=== PATIENT | female | born 1980 | race Caucasian/White ===

== ENCOUNTER 2024-06-13 16:29 | Emergency (ER) | payer OTHER, SELFPAY ==
[2024-06-13 16:37] VITALS: BP 128/78; PULSE 78; TEMP 36.8; O2SAT 99; BMI 24.6
[2024-06-13 17:16] LABS: Basophils Percent Auto 0.5 % (0.2-2.0); Eosinophils Absolute Auto 0.1 10^3/uL (0.0-0.7); Eosinophils Percent Auto 1.1 % (0.9-7.0); Hematocrit 41.3 % (36.0-48.0); Hemoglobin 14.1 g/dL (12.0-16.0); Immature Granulocytes Abs Auto 0.02 10^3/uL (0.00-0.03); Immature Granulocytes Pct Auto 0.2 % (0.0-0.5); Lymphocytes Absolute Auto 2.8 10^3/uL (1.2-3.8); Lymphocytes Percent Auto 33.2 % (20.5-60.0); Mean Corpuscular HGB Conc 34.1 g/dL (29.9-35.2); Mean Corpuscular Hemoglobin 33.2 pg (26.7-34.0); Mean Corpuscular Volume 97.2 fL (81.0-99.0); Mean Platelet Volume 8.7 fL (9.5-13.5); Monocytes Absolute Auto 0.6 10^3/uL (0.3-0.8); Monocytes Percent Auto 7.1 % (1.7-12.0); Neutrophils Absolute Auto 4.9 10^3/uL (1.4-6.5); Neutrophils Percent Auto 57.9 % (43.0-75.0); Platelet Count 326 10^3/uL (150-450); Red Blood Count 4.25 10^6/uL (4.20-5.40); Red Cell Distribution Width 12.7 % (11.0-15.0); White Blood Count 8.5 10^3/uL (4.0-11.0)
--- NOTE | 2024-06-13 17:35 | ECG_ITS ---
The [facility] Test Date: 2024-06-13 Pat Name: GARIMA CORNEJO Department: Room: - Gender: Female Broacher: : 1980 Requested By: [id number] Order Number: [id number] Reading MD: HEBER ANDRADE Measurements Intervals [place] Rate: 78 P: 49 CO: 148 QRS: 62 QRSD: 74 T: 32 QT: 362 QTc: 396 Interpretive Statements 1100 Sinus rhythm 1570 with occasional ventricular premature complexes 4068 Nonspecific Tw[place] abnormality 9140 abnormal rhythm ECG No previous ECG available for comparison Electronically Signed On 06-14-2024 5:25:56 EDT by HEBER ANDRADE
[2024-06-13 17:36] LABS: Alanine Aminotransferase 33 U/L (14-59); Albumin Level 3.5 g/dL (3.4-5.0); Alkaline Phosphatase 67 U/L (46-116); Anion Gap 9.6; Aspartate Amino Transferase 18 U/L (15-37); BUN Creatinine Ratio 14.7; Bilirubin Total 0.3 mg/dL (0.2-1.0); Calcium 8.8 mg/dL (8.5-10.1); Carbon Dioxide 28.2 mmol/L (21.0-32.0); Chloride 105 mmol/L (98-107); Estimated GFR (African America >60 (>=60); Estimated GFR (Non-African Ame >60 (>=60); Globulin 3.5 g/dL; Glucose 114 mg/dL (74-106); Potassium 3.8 mmol/L (3.5-5.1); Sodium 139 mmol/L (136-145); Troponin I High Sensitivity <4.0 pg/mL (4.0-51.3)
--- NOTE | 2024-06-13 18:28 | ED.CHESTPAI1 ---
HPI - Chest Pain General Chief Complaint: Back Pain/Injury Stated Complaint: CARDIAC Time Seen by Provider: 06/13/24 18:19 Source: patient and friend (Significant other) Mode of arrival: walk-in Limitations: no limitations History of Present Illness HPI narrative: 44-year-old female presents to the emergency department significant other with complaint of back, neck, chest pain. Onset after she was walking her dogs last night. Initially, pain was in the lower back, now located to bilateral upper back regions. States neck pain is the left anterior, describes as a bruise with associated tenderness. Had fleeting chest discomfort. History of hypertension, hyperlipidemia, cigarette smoking. Denies any recent travel, calf pain, control pill use, cancer history, prior history of blood clots. Denies any shortness of breath, nausea, diaphoresis. Quality:?Soreness, bruised Severity:?Mild Timing:?Since last night, improving Context: Normal setting and activity? Modifying factors:?Pain worse with palpation Associated symptoms: As Related Data Home Medications ?Medication ?Instructions ?Recorded ?Confirmed amlodipine 5 mg tablet 5 mg PO DAILY 06/13/24 06/13/24 rosuvastatin 10 mg sprinkle capsule 10 mg PO DAILY 06/13/24 06/13/24 Previous Rx's ?Medication ?Instructions ?Recorded cyclobenzaprine 5 mg tablet 5 - 10 mg (1 - 2 x 5 mg) PO TID 06/13/24 PRN muscle pain #14 tabs Allergies Allergy/AdvReac Type Severity Reaction Status Date / Time meperidine [From Demerol] AdvReac Mild Hives Verified 06/13/24 16:41 Review of Systems ROS Constitutional Denies: fever, chills or fatigue Ears, nose, mouth, and throat Reports: neck pain Cardiovascular Reports: chest pain; Denies: palpitations, edema or shortness of breath with exertion Respiratory Denies: shortness of breath, cough or chest congestion Gastrointestinal Denies: abdominal pain or nausea Musculoskeletal Reports: back pain; Denies: neck pain or extremity pain Neurological Denies: headache, dizziness or confusion Endocrine Denies: fatigue PFSH PFSH Family History (Updated 06/13/24 @ 18:34 by CARLOS Ma) Other Family history of cancer Family history of hypertension Social History (Updated 06/13/24 @ 18:34 by CARLOS Ma) Smoking status: Current every day smoker Exam Constitutional Vital Signs, click to edit/add: Last Vital Signs Temp 98.2 F 06/13/24 16:37 Pulse 86 06/13/24 18:43 Resp 18 06/13/24 18:43 BP 136/88 06/13/24 18:43 Pulse Ox 98 06/13/24 18:43 O2 Del Method Room Air 06/13/24 16:37 Common normals: apparent distress, negative for oriented x3 and negative for well nourished HENMT Common normals: normocephalic, head/scalp atraumatic and external nose normal Nose: external nose normal Eye Common normals: conjunctivae normal Neck & C-Spine Common normals: supple and no JVD Chest Common normals: palpation of chest normal Respiratory Common normals: normal respiratory effort and clear to auscultation bilaterally Effort & inspection: able to speak in complete sentences Cardio Common normals: no JVD, regular rate, regular rhythm and no murmurs GI Common normals: soft to palpation and non-tender Back & Pelvis Common normals: CVA tenderness General back: tenderness (Right trapezius) Thoracic spine/upper back: normal to inspection; no thoracic spinal tenderness Lumbar spine/lower back: normal to inspection; no lumbar spinal tenderness and no paraspinal muscle tenderness Extremity Common normals: no pedal edema Neuro Common normals: no focal motor deficits, no sensory deficits noted and gait normal; not oriented x3 Psych Common normals: mental status grossly normal, thought process normal and cooperative Thought process: normal thought process Course Vital Signs Vital signs: Vital Signs Temperature 98.2 F 06/13/24 16:37 Pulse Rate 78 06/13/24 16:37 Respiratory Rate 18 06/13/24 16:37 Blood Pressure 128/78 06/13/24 16:37 Pulse Oximetry 99 06/13/24 16:37 Oxygen Delivery Method Room Air 06/13/24 16:37 Temperature 98.2 F 06/13/24 16:37 Pulse Rate 86 06/13/24 18:43 Respiratory Rate 18 06/13/24 18:43 Blood Pressure 136/88 06/13/24 18:43 Pulse Oximetry 98 06/13/24 18:43 Oxygen Delivery Method Room Air 06/13/24 16:37 MDM - Chest Pain MDM Narrative Medical decision making narrative: This is a pleasant 44-year-old female who presents to the emergency department with complaint of back, neck, chest discomfort. Onset after walking her dogs last night. On arrival afebrile, vital signs are stable. Not hypoxic. Not tachycardic. On exam nontoxic, well-appearing patient in no distress. Heart regular rate and rhythm. Lung sounds clear and equal bilaterally. No edema. She has point tenderness to the right trapezius muscle. She is also states there is tenderness to the left neck, lower jaw region. EKG reveals no acute or concerning changes Labs reveal no leukocytosis, anemia, thrombocytopenia, electrolyte imbalance, renal impairment. LFTs unremarkable. High-sensitivity troponin was negative. Favor upper back pain, favor muscle soreness. ACS less likely based on biomarkers and EKG Consider muscle aches from statin use. Patient advised to take co-Q10. No elevation of LFTs noted. PE less likely based on negative PERC score Disposition ? The patient was discharged. Plan: Patient will be discharged to home. Condition at time of disposition: stable ? Advised to follow up with primary provider. Advised to return for any worsening and/or development of new, concerning signs or symptoms PLEASE NOTE: Portions of the medical record may have been produced using electronic medical staff assistant and may contain errors with respect to translation of words which may not have been identified prior to finalization of the chart. Medical Records Data Attestation: I reviewed the patient's medical records. Lab Data Attestation: I reviewed the patient's lab results. Labs: Lab Results 06/13/24 Range/Units 17:03 WBC 8.5 (4.0-11.0) 10^3/uL RBC 4.25 (4.20-5.40) 10^6/uL Hgb 14.1 (12.0-16.0) g/dL Hct 41.3 (36.0-48.0) % MCV 97.2 (81.0-99.0) fL MCH 33.2 (26.7-34.0) pg MCHC 34.1 (29.9-35.2) g/dL RDW 12.7 (11.0-15.0) % Plt Count 326 (150-450) 10^3/uL MPV 8.7 L (9.5-13.5) fL Neut % (Auto) 57.9 (43.0-75.0) % Lymph % (Auto) 33.2 (20.5-60.0) % [place] % (Auto) 7.1 (1.7-12.0) % Eos % (Auto) 1.1 (0.9-7.0) % Baso % (Auto) 0.5 (0.2-2.0) % Neut # (Auto) 4.9 (1.4-6.5) 10^3/uL Lymph # (Auto) 2.8 (1.2-3.8) 10^3/uL [place] # (Auto) 0.6 (0.3-0.8) 10^3/uL Eos # (Auto) 0.1 (0.0-0.7) 10^3/uL Baso # (Auto) 0.0 (0.0-0.1) 10^3/uL Abs Immat Gran (auto) 0.02 (0.00-0.03) 10^3/uL Imm/Tot Granulo (auto) 0.2 (0.0-0.5) % Sodium 139 (136-145) mmol/L Potassium 3.8 (3.5-5.1) mmol/L Chloride 105 (98-107) mmol/L Carbon Dioxide 28.2 (21.0-32.0) mmol/L Anion Gap 9.6 BUN 14.0 (7.0-18.0) mg/dL Creatinine 0.95 (0.55-1.02) mg/dL Est GFR ( Amer) >60 (>=60) Est GFR (Non-Af Amer) >60 (>=60) BUN/Creatinine Ratio 14.7 Glucose 114 H (74-106) mg/dL Calcium 8.8 (8.5-10.1) mg/dL Total Bilirubin 0.3 (0.2-1.0) mg/dL AST 18 (15-37) U/L ALT 33 (14-59) U/L Alkaline Phosphatase 67 (46-116) U/L Troponin I High Sens <4.0 L (4.0-51.3) pg/mL Total Protein 7.0 (6.4-8.2) g/dL Albumin 3.5 (3.4-5.0) g/dL Globulin 3.5 g/dL Albumin/Globulin Ratio 1.0 ECG Data Attestation: I personally reviewed and interpreted this ECG as follows: (Sinus rhythm at [address] elevation. No other acute or concerning changes. Normal axis.) ECG interpretation date: 06/13/24 ECG interpretation time: 16:37 Heart Score History: Slightly/Non-Suspicious ECG: Normal Age: >45-<65 years Risk Factors: >3 Risk Factors/ HX of CAD:2 Troponin: <Normal Limit Total Heart Score Recommendations & Risks:: 3 Discharge Plan Discharge Stand Alone Forms: Portal Instructions Chief Complaint: Back Pain/Injury Clinical Impression: Upper back pain, Chest pain Patient Disposition: Home, Self-Care Time of Disposition Decision: 18:37 Condition: Good Mode of Transportation: Private Vehicle Prescriptions / Home Meds: New cyclobenzaprine 5 mg tablet 5 - 10 mg PO TID PRN (Reason: muscle pain) Qty: 14 0RF No Action rosuvastatin 10 mg capsule, sprinkle 10 mg PO DAILY amlodipine 5 mg tablet 5 mg PO DAILY Print Language: Greek Instructions: Chest Pain (ED), Back Pain (ED) Additional Instructions: Obtain CoQ10 from the store and use as directed Referrals: [facility] [Primary Care Provider] - 1 week Discharge Date/Time: 06/13/24 18:44
[2024-06-13 18:43] VITALS: BP 136/88; PULSE 86; O2SAT 98
== END 2024-06-13 18:44 | disposition home or self-care (01) ==
PROVIDERS: Emergency Provider Emergency Medicine
DX: R07.9 Chest pain, unspecified (principal); M54.6 Pain in thoracic spine; I10 Essential (primary) hypertension; E78.5 Hyperlipidemia, unspecified; F17.210 Nicotine dependence, cigarettes, uncomplicated
CPT/HCPCS: 36415; 80053; 84484; 85025; 93005; 99284

== ENCOUNTER 2024-08-10 19:10 | Emergency (ER) | payer OTHER, SELFPAY ==
[2024-08-10] VITALS (12 sets, daily range): BP systolic 118–150; BP diastolic 77–92; PULSE 63–86; TEMP 36.5; O2SAT 95–100; BMI 25.0
--- NOTE | 2024-08-10 19:25 | CT_ITS ---
The [address] [address] Patient Name: GARIMA CORNEJO MRN: [id number] date: 1980 Sex: F Assigned Patient Location: ER Current Patient Location: ER Accession/Order Number: [id number] Exam Date: 08/10/2024 19:34 Report Date: 08/10/2024 19:52 At the request of: BOBBY KYLE Procedure: CT stroke head/brain wo con EXAM: CT stroke head/brain wo con HISTORY: Right-sided numbness and confusion. TECHNIQUE: Axial CT scans through the head were obtained without IV contrast administration. Dose reduction techniques were achieved by using: automated exposure control and/or adjustment of mA and /or kV according to patient size and/or the use of an iterative reconstruction technique. COMPARISON: None. FINDINGS: The cerebral hemispheres have normal white and galarza matter and corticomedullary differentiation. To the limit of CT, the posterior fossa appears unremarkable. The ventricular system and cortical sulci are normal for the patient's age. No area of abnormal mass-effect or edema or intracranial hemorrhage. The visualized orbits show no abnormal mass. The visualized paranasal sinuses show no air-fluid level. Mastoid air cells are clear. CT/CT stroke head/brain wo con IMPRESSION: No acute intracranial process. Electronically authenticated by: AMINA SAVAGE Date: 08/10/2024 19:52
--- NOTE | 2024-08-10 19:25 | XR_ITS ---
[address] [address] Patient Name: GARIMA CORNEJO MRN: [id number] date: 1980 Sex: F Assigned Patient Location: ER Current Patient Location: ER Accession/Order Number: [id number] Exam Date: 08/10/2024 19:36 Report Date: 08/10/2024 20:27 At the request of: BOBBY KYLE Procedure: XR chest 1V Exam: Radiographs: XR chest 1V Reason for exam: poss cva Comparison: None XR/XR chest 1V IMPRESSION: Unremarkable chest x-ray. Electronically authenticated by: AYSHA ADAN Date: 08/10/2024 20:27
--- NOTE | 2024-08-10 19:25 | ECG_ITS ---
The [facility] Test Date: 2024-08-10 Pat Name: GARIMA CORNEJO Department: Room: - Gender: Female Center Mgr: : 1980 Requested By: [id number] Order Number: [id number] Reading MD: KRISTIN MENDEZ Measurements Intervals [place] Rate: 79 P: 52 TX: 150 QRS: 66 QRSD: 74 T: 42 QT: 354 QTc: 388 Interpretive Statements 1100 Sinus rhythm 9110 normal ECG Compared to ECG 06/13/2024 16:37:12 Ventricular premature complex(es) no longer present Electronically Signed On 08-12-2024 7:30:39 EDT by KRISTIN MENDEZ
--- NOTE | 2024-08-10 19:29 | ED.NEUROSD1 ---
HPI - Neuro Symptoms/Deficit General Chief Complaint: Neuro Symptoms/Deficit Stated Complaint: Right Side Numbness, Dizziness, Confusion Time Seen by Provider: 08/10/24 19:13 Source: patient Mode of arrival: walk-in Limitations: no limitations History of Present Illness HPI Narrative: 44-year-old female presents to the emergency department for weakness in her right arm and right leg. She has had a generalized headache for 4 days and then her symptoms began yesterday when she noticed she had trouble controlling her right arm and she ended up cutting in a minor fashion a finger of her left hand in the kitchen. Between 8 and 9 this morning she was driving in her car and her body felt heavy. She was tired and she went home and she slept until about 2:00 pm. Her has noticed that she has had some trouble walking particularly when she was coming down some stairs. She has noticed trouble controlling her right arm and her right leg such as signing papers. Symptoms have been continuous and she is never had a stroke previously. She has a history of hypertension and has been taking her medication. Related Data Home Medications ?Medication ?Instructions ?Recorded ?Confirmed amlodipine 10 mg-benazepril 20 mg 1 cap PO DAILY 08/10/24 08/10/24 capsule rosuvastatin 10 mg tablet 10 mg PO DAILY 08/10/24 08/10/24 Allergies Allergy/AdvReac Type Severity Reaction Status Date / Time meperidine [From Demerol] AdvReac Mild Hives Verified 08/10/24 19:15 Review of Systems ROS Narrative A ten point review of systems is negative except as noted above. PFSH PFSH Family History (Updated 06/13/24 @ 18:34 by CARLOS Ma) Other Family history of cancer Family history of hypertension Social History (Updated 06/13/24 @ 18:34 by CARLOS Ma) Smoking status: Current every day smoker Little interest or pleasure in doing things: not at all Feeling down, depressed, or hopeless: not at all Exam Narrative Exam Narrative: Nurses note and vital signs reviewed and patient is not hypoxic. General: The patient appears well and in no apparent distress. Patient is resting comfortably on cart. Skin: Warm, dry, no pallor noted. There is no rash noted. Head: Normocephalic, atraumatic Eye: Normal conjunctiva, no drainage, EOMI. PERRL Ears, Nose, Mouth, and Throat: oral mucosa is moist. Nares patent. Cardiovascular: Regular Rate and Rhythm Respiratory: Patient is in no distress, no accessory muscle use, lungs are clear to auscultation, no wheezing, rales or rhonchi Back: non-tender GI: no tenderness to palpation, no masses appreciated. No rebound, guarding, or rigidity noted. Musculoskeletal: The patient has no evidence of calf tenderness, no pitting edema, symmetrical pulses noted bilaterally Neurological: A&O x4, normal speech. Cranial nerves II through XII are intact. She has decreased motor strength in the right arm, all muscle groups compared to the left arm and in the right leg in all muscle groups compared to the left leg. She also has finger to toes and [id number] slight difficulty in the right arm and right leg. No difficulty with the left arm and left leg. She has some pronator drift of the right arm, not the left. NIH score is 4. Psychiatric: Cooperative Constitutional Vital Signs, click to edit/add: Last Vital Signs Temp 97.7 F 08/10/24 19:15 Pulse 86 08/10/24 20:30 Resp 23 H 08/10/24 20:30 BP 145/92 H 08/10/24 20:30 Pulse Ox 98 08/10/24 20:30 Course Vital Signs Vital signs: Vital Signs Temperature 97.7 F 08/10/24 19:15 Pulse Rate 83 08/10/24 19:15 Respiratory Rate 18 08/10/24 19:15 Blood Pressure 150/90 H 08/10/24 19:15 Pulse Oximetry 100 08/10/24 19:15 Temperature 97.7 F 08/10/24 19:15 Pulse Rate 86 08/10/24 20:30 Respiratory Rate 23 H 08/10/24 20:30 Blood Pressure 145/92 H 08/10/24 20:30 Pulse Oximetry 98 08/10/24 20:30 MDM - Neuro Symptoms/Deficit MDM Narrative Medical decision making narrative: CT brain is negative. I discussed the case with neurologist on-call at [facility] who reviewed her CTA and identifies and nonobstructive blockage in the left ICA. He recommends IV heparin and transferred to [facility] and this is being accomplished. I have spoken to the patient and her about these findings and the need for transfer and they are agreeable. She is stable and agreeable for transfer. Differential Diagnosis Differential diagnosis: Likely transient cerebral ischemia and other (Intracranial mass, intracranial hemorrhage, CVA) Lab Data Attestation: I reviewed the patient's lab results. Labs: Lab Results 08/10/24 08/10/24 08/10/24 Range/Units 19:29 19:30 19:55 WBC 13.9 H (4.0-11.0) 10^3/uL RBC 4.61 (4.20-5.40) 10^6/uL Hgb 15.2 (12.0-16.0) g/dL Hct 45.2 (36.0-48.0) % MCV 98.0 (81.0-99.0) fL MCH 33.0 (26.7-34.0) pg MCHC 33.6 (29.9-35.2) g/dL RDW 12.4 (11.0-15.0) % Plt Count 319 (150-450) 10^3/uL MPV 8.7 L (9.5-13.5) fL Neut % (Auto) 61.7 (43.0-75.0) % Lymph % (Auto) 29.7 (20.5-60.0) % [place] % (Auto) 7.4 (1.7-12.0) % Eos % (Auto) 0.4 L (0.9-7.0) % Baso % (Auto) 0.4 (0.2-2.0) % Neut # (Auto) 8.6 H (1.4-6.5) 10^3/uL Lymph # (Auto) 4.1 H (1.2-3.8) 10^3/uL [place] # (Auto) 1.0 H (0.3-0.8) 10^3/uL Eos # (Auto) 0.1 (0.0-0.7) 10^3/uL Baso # (Auto) 0.1 (0.0-0.1) 10^3/uL Abs Immat Gran (auto) 0.06 H (0.00-0.03) 10^3/uL Imm/Tot Granulo (auto) 0.4 (0.0-0.5) % Sodium 136 (136-145) mmol/L Potassium 4.1 (3.5-5.1) mmol/L Chloride 103 (98-107) mmol/L Carbon Dioxide 27.1 (21.0-32.0) mmol/L Anion Gap 10.0 BUN 26.0 H (7.0-18.0) mg/dL Creatinine 1.66 H (0.55-1.02) mg/dL Est GFR ( Amer) 40 L (>=60) Est GFR (Non-Af Amer) 33 L (>=60) BUN/Creatinine Ratio 15.7 Glucose 101 (74-106) mg/dL Calcium 8.9 (8.5-10.1) mg/dL POC Glucose 96 (74-106) mg/dL Imaging Data CT scan - head: Radiologist's impression: ITS Impressions Brain CT 08/10/24 19:25 IMPRESSION: No acute intracranial process. Electronically authenticated by: AMINA SAVAGE Date: 08/10/2024 19:52 Chest X-Ray 08/10/24 19:25 IMPRESSION: Unremarkable chest x-ray. Electronically authenticated by: AYSHA ADAN Date: 08/10/2024 20:27 ECG Data Attestation: I personally reviewed and interpreted this ECG as follows: (EKG on my interpretation shows normal sinus rhythm with rate of 79 and no acute change.) Critical Care Time Critical Care Time Critical Care Time: Yes Total Critical Care Time: 50 Attestation: Due to the high probability of sudden and clinically significant deterioration in the patient's condition he/she required the highest level of my preparedness to intervene urgently I provided critical care time including documentation time, medication orders and management, reevaluation, vital sign assessment, ordering and reviewing of lab tests, ordering and reviewing of x-ray studies, and admission orders. Aggregate critical care time is 50 minutes including only time during which I was engaged in work directly related to his/her care and did not include time spent treating other patients simultaneously. Discharge Plan Discharge Chief Complaint: Neuro Symptoms/Deficit Clinical Impression: Acute CVA (cerebrovascular accident) Patient Disposition: [facility] Time of Disposition Decision: 20:31 Discharge Location: [facility] Condition: Fair Mode of Transportation: EMS
[2024-08-10 19:30] LABS: Glucometer 96 mg/dL (74-106)
--- NOTE | 2024-08-10 19:34 | PC.NURSE ---
FSBS reading is 96
[2024-08-10 19:38] LABS: Basophils Absolute Auto 0.1 10^3/uL (0.0-0.1); Basophils Percent Auto 0.4 % (0.2-2.0); Eosinophils Absolute Auto 0.1 10^3/uL (0.0-0.7); Eosinophils Percent Auto 0.4 % (0.9-7.0); Hematocrit 45.2 % (36.0-48.0); Hemoglobin 15.2 g/dL (12.0-16.0); Immature Granulocytes Abs Auto 0.06 10^3/uL (0.00-0.03); Immature Granulocytes Pct Auto 0.4 % (0.0-0.5); Lymphocytes Absolute Auto 4.1 10^3/uL (1.2-3.8); Lymphocytes Percent Auto 29.7 % (20.5-60.0); Mean Corpuscular HGB Conc 33.6 g/dL (29.9-35.2); Mean Platelet Volume 8.7 fL (9.5-13.5); Monocytes Percent Auto 7.4 % (1.7-12.0); Neutrophils Absolute Auto 8.6 10^3/uL (1.4-6.5); Neutrophils Percent Auto 61.7 % (43.0-75.0); Platelet Count 319 10^3/uL (150-450); Red Blood Count 4.61 10^6/uL (4.20-5.40); Red Cell Distribution Width 12.4 % (11.0-15.0); White Blood Count 13.9 10^3/uL (4.0-11.0)
--- NOTE | 2024-08-10 19:57 | CT_ITS ---
The [address] [address] Patient Name: GARIMA CORNEJO MRN: [id number] date: 1980 Sex: F Assigned Patient Location: ER Current Patient Location: ER Accession/Order Number: [id number] Exam Date: 08/10/2024 20:10 Report Date: 08/10/2024 21:10 At the request of: BOBBY KYLE Procedure: CT angio head EXAM: CT angiogram of the head and neck using 100 mL of IV iodinated contrast. 3D images were generated on an independent workstation for better evaluation of the vasculature. NASCET criteria were used when evaluating the carotid arteries. Dose reduction technique used: Automated exposure control and/or adjustment of the mA and/or kV according to patient size and/or use of iterative reconstruction technique. REASON FOR EXAM: Right sided weakness COMPARISON: Noncontrast head CT from today FINDINGS: CTA: Filling defect in the left carotid bifurcation and origin of the left cervical internal carotid artery, this is nonocclusive and does not create tangential stenosis. No large vessel occlusion. No significant intracranial arterial stenoses. No arterial dissections. No intracranial aneurysms. Patent dural venous sinuses. Bilateral vertebral arteries are patent without significant stenosis, aneurysm or dissection in the neck. No arterial dissection or aneurysm in the neck. NON-VASCULAR: No mass effect or midline shift. No hydrocephalus. Paraseptal and centrilobular emphysema in both lungs. Remainder unremarkable. CT/CT angio head IMPRESSION: 1. Left carotid bifurcation and proximal cervical internal carotid artery filling defect is favored to represent thrombus although noncalcified mural plaque projecting into the lumen is also a consideration. 2. No acute intracranial arterial abnormalities. These findings were discussed with Dr. Kyle by phone at 9:09PM on 08/10/2024. Electronically authenticated by: AYSHA ADAN Date: 08/10/2024 21:10
--- NOTE | 2024-08-10 19:57 | CT_ITS ---
The [address] [address] Patient Name: GARIMA CORNEJO MRN: [id number] date: 1980 Sex: F Assigned Patient Location: ER Current Patient Location: ER Accession/Order Number: [id number] Exam Date: 08/10/2024 20:10 Report Date: 08/10/2024 21:10 At the request of: BOBBY KYLE Procedure: CT angio neck EXAM: CT angiogram of the head and neck using 100 mL of IV iodinated contrast. 3D images were generated on an independent workstation for better evaluation of the vasculature. NASCET criteria were used when evaluating the carotid arteries. Dose reduction technique used: Automated exposure control and/or adjustment of the mA and/or kV according to patient size and/or use of iterative reconstruction technique. REASON FOR EXAM: Right sided weakness COMPARISON: Noncontrast head CT from today FINDINGS: CTA: Filling defect in the left carotid bifurcation and origin of the left cervical internal carotid artery, this is nonocclusive and does not create tangential stenosis. No large vessel occlusion. No significant intracranial arterial stenoses. No arterial dissections. No intracranial aneurysms. Patent dural venous sinuses. Bilateral vertebral arteries are patent without significant stenosis, aneurysm or dissection in the neck. No arterial dissection or aneurysm in the neck. NON-VASCULAR: No mass effect or midline shift. No hydrocephalus. Paraseptal and centrilobular emphysema in both lungs. Remainder unremarkable. CT/CT angio neck IMPRESSION: 1. Left carotid bifurcation and proximal cervical internal carotid artery filling defect is favored to represent thrombus although noncalcified mural plaque projecting into the lumen is also a consideration. 2. No acute intracranial arterial abnormalities. These findings were discussed with Dr. Kyle by phone at 9:09PM on 08/10/2024. Electronically authenticated by: AYSHA ADAN Date: 08/10/2024 21:10
[2024-08-10 20:14] LABS: BUN Creatinine Ratio 15.7; Calcium 8.9 mg/dL (8.5-10.1); Carbon Dioxide 27.1 mmol/L (21.0-32.0); Chloride 103 mmol/L (98-107); Estimated GFR (African America 40 (>=60); Estimated GFR (Non-African Ame 33 (>=60); Glucose 101 mg/dL (74-106); Potassium 4.1 mmol/L (3.5-5.1); Sodium 136 mmol/L (136-145)
[2024-08-10] MEDS: HEPARIN SODIUM (PORCINE) 5,000 UNIT/ML VIAL 4000 UNIT IV (20:53)
[2024-08-10] MEDS: HEPARIN SODIUM,PORCINE/D5W 25,000 UNIT/500 ML IV.SOLN 16.329 UNIT IV (20:55)
[2024-08-10 20:57] LABS: Prothrombin Time 9.6 sec (9.0-11.6)
[2024-08-10 21:07] LABS: INR <0.93
[2024-08-10 21:08] LABS: Partial Thromboplastin Time <20.0 sec (22.3-36.2)
[2024-08-11] VITALS: PULSE 71
[2024-08-11 00:30] VITALS: PULSE 71
--- NOTE | 2024-08-11 00:49 | PC.NURSE ---
[facility] here at this time for transport.
--- NOTE | 2024-08-11 00:55 | PC.NURSE ---
Report called to LELA Melendez at [facility].
== END 2024-08-11 00:59 | disposition short-term general hospital (02) ==
PROVIDERS: Emergency Provider Emergency Medicine
DX: I63.9 Cerebral infarction, unspecified (principal); I10 Essential (primary) hypertension; Z79.899 Other long term (current) drug therapy; F17.200 Nicotine dependence, unspecified, uncomplicated
CPT/HCPCS: 36415; 70450; 70496; 70498; 71045; 80048; 85025; 85610; 85730; 93005; 96374; 99285; J1644; Q9967

== ENCOUNTER 2024-11-25 19:52 | Emergency (ER) | payer OTHER, SELFPAY ==
[2024-11-25 19:57] VITALS: BP 115/73; PULSE 80; TEMP 36.7; O2SAT 100; BMI 25.3
--- OUTSIDE RECORDS SUMMARY | 2024-11-25 19:58 | XMS_ITS | CCD ---
Author Organization [facility] Care Team Providers Care Metrology Technician Name Role Phone Unavailable Primary Care Provider [facility] [phone] VIRAL Chappell Attending Provider [facility] Primary Care Provider [phone] VIRAL Chappell Attending Provider [phone] DO Vineet Sherman Attending Provider [phone] Garry Carter Unavailable KATHLEEN GREEN Attending Unavailable KATHLEEN GREEN Referring Unavailable Kwabena Santana Unavailable [facility] Primary Care Provider DO Parvez Joseph Emergency Provider DO Yue Ramey Attending Provider DO Vineet Sherman Referring [facility] Primary [facility] Unavailable Yue Ramey Attending Unavailable Yue Ramey Admitting Unavailable Whit Vineet Referring Unavailable [facility] Primary Care Unavailable Parvez Joseph Attending Unavailable Parvez Joseph Admitting Unavailable PLANK, VINEET Primary Care Unavailable DEB NICHOLE Referring Unavailable Vineet Sherman DO Primary Care Provider SUNNI GUAJARDO Primary Care Unavailable SUNNI GUAJARDO Primary Care Unavailable SUNNI GUAJARDO Primary Care Unavailable SUNNI GUAJARDO Primary Care Unavailable ISMAEL GILL Attending Unavailable PLANK, VINEET Primary Care Unavailable PLANK, VINEET Referring Unavailable PLANK, VINEET Primary Care Unavailable CHRISTOPH, VIEH Referring Unavailable Allergies Allergy Classification Reported Allergen(s) Allergy Type Date of Onset Reaction(s) Facility (1 source) Seasonal allergy Allergy to substance 1 Other: See Comments [facility] (20 sources) Meperidine; Translations: [meperidine] Drug Allergy 7 Swelling, Hives, Shortness Of Breath [facility] (3 sources) kiwi; Translations: [kiwi] Allergy to substance 4 Hives, Difficulty Breathing [facility] Medications Current Medications Medication Drug Class(es) Dates Sig (Normalized) Sig (Original) [id number] 200 actuat albuterol 0.09 mg/actuat metered dose inhaler (9 sources) beta2-Adrenergic Agonist Start: 09-23-2021 Albuterol Sulfate Active 1 PUFF INHALATION As Directed September 23, 2021 12:00am Start: 09-23-2021 Albuterol Sulf ate Active INHALATION September 23, 2021 12:00am Start: 09-16-2021 albuterol HFA (PROVENTIL HFA, VENTOLIN HFA) 90 mcg/actuation inhaler take 2 puff(s) by in halation every six hours as needed for wheezing albuterol (PROVENTIL HFA;VENTOLIN HFA) 90 mcg/actuation inhaler Inhale 2 puffs every 6 (six) hours as needed for wheezing. Active amLODIPine 10 mg / benazepril hydrochloride 20 mg oral capsule (5 sources) Dihydropyridine Calcium Channel Halley, Angiotensin Converting Enzyme Inhibitor Start: 07-09-2024 take 1 capsule by mouth once daily Amlodipine-Benazepril Active 1 CAP PO Daily July 09, 2024 12:00am take 1 capsule by [facility] once in the morning amLODIPine-benazepril (LOTREL) 10-20 mg per capsule Take 1 capsule by mouth in the morning. Active apixaban 5 mg oral tablet (7 sources) Factor Xa Inhibitor Start: 08-13-2024 take 1 tablet by mouth in the morning, then take 1 tablet by mouth at bedtime apixaban (ELIQUIS) 5 mg tablet Take 1 tablet (5 mg total) by mouth in the morning and 1 tablet (5 mg total) before bedtime. 90 tablet 3 08/13/2024 Active aspirin 81 mg delayed release oral tablet (4 sources) Platelet Aggregation Inhibitor, Nonsteroidal Anti-inflammatory Drug Start: 08-15-2024 take 1 tablet by mouth in the morning aspirin 81 mg Take 1 tablet (81 mg total) by mouth in the morning. 90 tablet 3 08/15/2024 Active 120 actuat budesonide 0.16 mg/actuat / formoterol fumarate 0.0045 mg/actuat metered dose inhaler (8 sources) Corticosteroid, beta2-Adrenergic Agonist Start: 09-23-2021 take 1 puff(s) by inhalation twice daily Budesonide-Formo terol (Symbicort) 160-4.5 mcg/actuation Hfa Aerosol Inhaler Active 2 PUFF INHALATION Twice daily September 23, 2021 12:00am take 2 puff(s) by in halation in the morning budesonide-formoterol (SYMBICORT) 160-4. 5 mcg/actuation inhaler Inhale 2 puffs in the morning and 2 puffs before bedtime. Active 24 hr buPROPion hydrochloride 150 mg extended release oral tablet (3 sources) Aminoketone Start: 10-09-2024 take 1 tablet by mouth every twenty-four hours in the morning buPROPion XL (WELLBUTRIN XL) 150 mg 24 hr tablet Take 1 tablet (150 mg total) by mouth in the morning. 30 tablet 4 10/09/2024 Active cetirizine hydrochloride 10 mg oral tablet (1 source) Histamine-1 Receptor Antagonist Start: 04-04-2023 take 1 tablet by mouth every twenty-four hours Cetirizine HCl 10 MG 1 tablet Orally Once a day for 14 days March, Active cyclobenzaprine hydrochloride 5 mg oral tablet (1 source) Muscle Relaxant Start: 07-09-2024 take 5 mg by mouth three times daily Cyclobenzaprine Active 5 MG PO Three times daily July 09, 2024 12:00am fluticasone propionate 0.05 mg/actuat metered dose nasal spray (2 sources) Corticosteroid Start: 07-09-2024 take 1 spray(s) nasal route once daily Fluticasone Propionate (Flonase Allergy Relief) 50 mcg/actuation spray,suspension Active 1 SPRAY INTRANASAL Daily July 09, 2024 12:00am administer into each nostril Start: 04-04-2023 take 1 spray(s) nasa l route twice daily Fluticasone Propionate 50 MCG/ACT 1 spray in each nostril Nasally Twice a day for 14 days March, Active methylPREDNISolone 4 mg oral tablet (5 sources) Corticosteroid Start: 04-04-2023 methylPREDNISolone 4 MG as directed Orally take as directed for 6 days March, Active metoprolol tartrate 25 mg oral tablet (4 sources) beta-Adrenergic Halley Start: 04-28-2017 metoprolol tartrate (LOPRESSOR) 25 mg tablet Take 2 tablets (50 mg total) by mouth. 04/28/2017 Active olopatadine 2 mg/ml ophthalmic solution (3 sources) Histamine-1 Receptor Inhibitor Start: 09-23-2021 take 1 drop(s) into the eye(s) once daily Olopatadine (Pataday Once Daily Relief) 0.2 % drops Active 1 DROPS EYE-BOTH Daily 2.5 September 23, 2021 12:00am omeprazole 20 mg delayed release oral capsule (1 source) Proton Pump Inhibitor Start: 07-09-2024 take 20 mg by mouth once daily Omeprazole Active 20 MG PO Daily July 09, 2024 12:00am rosuvastatin calcium 10 mg oral tablet (5 sources) HMG-CoA Reductase Inhibitor Start: 07-09-2024 take 10 mg by mouth once daily Rosuvastatin Active 10 MG PO Daily July 09, 2024 12:00am Completed/Discontinued Medications Medication Drug Class(es) Dates Sig (Normalized) Sig (Original) amLODIPine 2.5 mg oral tablet (6 sources) Dihydropyridine Calcium Channel Halley Start: 09-23-2021 End: 07-09-2024 Amlodipine Discontinued MG TABLET September 23, 2021 12:00am July 09, 2024 10:33am Start: 07-28-2021 amLODIPine (NO RVASC) 2.5 mg tablet take 1 tablet by иван th every twenty-four hours amLODIPine Besylate 10 MG 1 tablet Orally Once a day Active ciprofloxacin 3 mg/ml ophthalmic solution (4 sources) Quinolone Antimicrobial Start: 09-23-2021 End: 07-09-2024 Ciprofloxacin Hcl Discontinued DROPS SOLUTION/ DROPS September 23, 2021 12:00am July 09, 2024 10:33am dexamethasone 1 mg/ml / tobramycin 3 mg/ml ophthalmic suspension (2 sources) Aminoglycoside Antibacterial, Corticosteroid Start: 09-30-2021 End: 09-30-2021 take 1 drop(s) into the eye(s) four times daily tobramycin-dexAMETH asone (TOBRADEX) 0.3-0.1 % ophthalmic suspension Use 1 Drop in the left eye four times daily. 5 mL 0 09/30/2021 Active Comment on above: Use 1 Drop in the le ft eye four times daily. escitalopram 5 mg oral tablet (5 sources) Serotonin Reuptake Inhibitor Start: 09-23-2021 End: 07-09-2024 Escitalopram Oxalate Discontinued MG TABLET September 23, 2021 12:00am July 09, 2024 10:33am Start: 02-09-2019 escitalopram o xalate (LEXAPRO) 5 mg tablet 1 tablet 0 02/09/2019 Active Comment on above: 1 tablet Olopatadine (Pataday Once Daily Relief) 0.2 % drops (1 source) Start: End: 4 take 1 drop(s) into the eye(s) once daily Olopatadine (Pataday Once Daily Relief) 0.2 % drops Discontinued 1 DROPS EYE-BOTH Daily 2.5 September 23, 2021 12:00am July 09, 2024 10:34am pantoprazole 40 mg delayed release oral tablet (5 sources) Proton Pump Inhibitor Start: 1 End: 4 Pantoprazole Discontinued MG PO September 23, 2021 12:00am July 09, 2024 10:34am Start: 09-16-2021 pantoprazole D R (PROTONIX) 40 mg tablet Problems Active Problems Problem Classification Problem Date Documented Da te Episodic/Chronic Acute cerebrovascular disease (9 sources) Cerebral infarction due to unspecified occlusion or stenosis of left carotid arteries; Translations: [Cerebrovascular accident] Onset: 08-11-2024 08-11-2024 Chronic Blindness and vision defects (1 source) Does use contact lenses; Translations: [Presence of spectacles and contact lenses] Episodic Cardiac dysrhythmias (1 source) Palpitations; Translations: [Palpitations] 10-09-2024 Episodic Inflammation; infection of eye (except that caused by tuberculosis or sexually transmitteddisease) (4 sources) Acute atopic conjunctivitis; Translations: [Acute atopic conjunctivitis, left eye] 09-23-2021 Episodic Other eye disorders (1 source) Infiltrate of cornea; Translations: [Unspecified corneal edema] Episodic Other eye disorders (1 source) Other specified disorders of eye and adnexa Episodic Other female genital disorders (4 sources) Abnormal uterine bleeding; Translations: [Abnormal uterine and vaginal bleeding, unspecified] Onset: 06-01-2018 06-01-2018 Chronic Other screening for suspected conditions (not mental disorders or infectious disease) (1 source) Encounter for screening for malignant neoplasm of colon; Translations: [Encounter for screening for malignant neoplasm of colon] Onset: 07-23-2024 Episodic Other upper respiratory disease (2 sources) Allergic rhinitis; Translations: [Allergic rhinitis, unspecified] Chronic Other upper respiratory disease (1 source) Allergic rhinitis, unspecified Chronic Other upper respiratory infections (1 source) Acute pharyngitis, unspecified Episodic Residual codes; unclassified (1 source) Pain, unspecified; Translations: [Pain, unspecified] Onset: 08-11-2024 Episodic Past or Other Problems Problem Classification Problem Date Documented Da te Episodic/Chronic Abdominal pain (8 sources) Acute pelvic pain; Translations: [Pelvic and perineal pain] Onset: 06-01-2018 04-10-2019 Episodic Administrative/social admission (4 sources) First encounter by subject; Translations: [Persons encountering health services in other specified circumstances] Onset: 07-12-2018 07-12-2018 Episodic Mood disorders (4 sources) Mood disorders Onset: 08-11-2024 Resolved: 10-09-2024 10-09-2024 Urinary tract infections (4 sources) Urinary tract infectious disease; Translations: [Urinary tract infection, site not specified] Onset: 06-20-2018 06-20-2018 Episodic Results Test Name Value Interpretation Reference Range Facility CT CTA CAROTIDon 09-11-[address] CT[address] CAROTID [address] ANGIOGRAM OF THE NECK CLINICAL INFORMATION: Cerebrovascular accident (CVA) due to occlusion of left carotid artery ([facility]). TECHNIQUE: CT angiogram performed following intravenous administration of nonionic intravenous contrast. Coronal and sagittal and 3-D volume rendered maximum intensity projection images generated and reviewed under concurrent physician supervision. Automated exposure control utilized. The [place] Symptomatic Carotid Endarterectomy Trial (NASCET) method for calculating the degree of stenosis was utilized for stenosis measurements. COMPARISON: CTA neck dated 08/13/2024, 08/10/2024 FINDINGS: There is a standard aortic arch configuration. There is no significant stenosis at the arch origins of the vessels. The visualized portions of the subclavian arteries are unremarkable. The common carotid arteries are well opacified without evidence for significant stenosis. There is a focal eccentric atherosclerotic soft plaque at the left carotid bifurcation and origin of the internal carotid artery. This is less prominent since the 08/13/2024 comparison examination. It does not result in significant stenosis at the origin of the internal carotid artery. The right carotid bifurcation is normal and widely patent. The internal carotid arteries are symmetric and well opacified throughout their cervical courses. There is a diminutive left vertebral artery. The vertebral arteries are well opacified throughout their cervical courses and join to form a normal diameter basilar artery. IMPRESSION: 1. Focal eccentric small atherosclerotic soft plaque at the left carotid bifurcation and origin of the internal carotid artery, less prominent since 08/13/2024. It does not result in any degree of significant stenosis. 2. The CTA neck is otherwise normal. There is no evidence for hemodynamically significant stenosis in the neck. All CT scans at this facility use dose modulation, iterative reconstruction, and/or weight based dosing when appropriate to reduce radiation dose to as low as reasonably achievable. Finalized by Chicho Aguila MD on 09/11/2024 10:44 AM Normal [facility] CT CTA HEADon 09-11-[address] CTA HEAD CT ANGIOGRAM OF THE HEAD CLINICAL INFORMATION: Cerebrovascular accident (CVA) due to occlusion of left carotid artery (CMS-HCC). Technique: CT angiogram of the head was performed following intravenous administration of nonionic intravenous contrast. 3-D maximum intensity projection images generated and reviewed under concurrent physician supervision. Automated exposure control was utilized. Arterial blood flow was measured to assist the stroke clinical team in the diagnosis of large vessel occlusion in patients undergoing screening for acute ischemic stroke using Rapid AI software when clinically indicated. COMPARISON: MRI brain dated 08/12/2024, CT dated 08/10/2024 and 08/13/2024 FINDINGS: The intracranial and supraclinoid portions of the internal carotid arteries are unremarkable. 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 The A2 segments and beyond are supplied by the left. The middle cerebral arteries and their branches are unremarkable. The vertebral arteries join to form a normal diameter basilar artery. There is a persistent origin of the right posterior cerebral artery. The left [facility] N[facility]SE is unremarkable. Both superior cerebellar arteries are seen. There is no evidence for stenosis or aneurysm in the head. IMPRESSION: 1. Normal CTA head. There is no evidence for stenosis or aneurysm in the head. 2. 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 All CT scans at this facility use dose modulation, iterative reconstruction, and/or weight based dosing when appropriate to reduce radiation dose to as low as reasonably achievable. Finalized by Chicho Aguila MD on 09/11/2024 10:27 AM Normal [facility] HCG ( test) IA.rapi d Ql (U)Ordered By: Yue Ramey on 07-23-2024 HCG ( test) Ql (U) Negative [facility] HCG,Urineon 07-23-2024 Beta HCG ( test) Ql (U) Negative Normal [facility] Comment on above: Result Comment: PERF ORMED BY: [place] [address] PATHOLOGIST [employer] REPAIRER TAMERA MOLINA M.D. Performed By: #### U HCG #### [address] [place] 07-23-2024 L Specimen: [id number] Received: 07/23/24 Status: MARIE Trevino Num: [id number] Spec Type: Surgical Subm Dr: Yue Ramey DO Tissues: A Small Intestine - Biopsy/Polyp (SMALL BOWEL R/O CELIAC) B GASTRIC FOR HP (GASTRIC BX R/O H.PYLORI) C Esophagus Biopsy (GIE JUNCTION R/O ESPOHAGITIS) D Esophagus Biopsy (PROXIMAL ESPHAGUS BX R/O EOE) E Colon Biopsy (SIGMOID POLYP) Procedures: HE/10, Gross/Micro L4/5, H PYLORI Age/ Patient Sex Location Account Attending Physician Ira Delarosa 44/F [id number] Yue Ramey DO SPEC NUM: [id number] RECD: 07/23/24 STATUS: MARIE TREVINO NUM: [id number] LINK: 07/23/24- SUBM DR: Yue Ramey DO ENTERED: 07/23/24-[address] [facility] [address]: SPEC TYPE: Surgical DEPT: S ORDERED: HE/10, Gross/Micro L4/5, H PYLORI ORDERED: HE/10, Gross/Micro L4/5, H PYLORI Pathological Diagnosis A, small bowel biopsy: -Duodenal mucosa with focal minor chronic inflammation in villous stroma, otherwise without any other specific features or evidence of celiac sprue identified B, gastric biopsy: -Antral to oxyntic mucosa with mild chronic reactive gastropathy, including occasional eosinophils in deeper stroma of both fragments, otherwise without any other specific type histomorphological changes observed -H. pylori immunostain with appropriate control is also negative for identified Helicobacter organism or infection C, GE junction biopsy: -Squamocolumnar and cardiac glandular mucosa each in each fragment with mild chronic GERD including moderate squamous acanthosis and the rare noted intestinal metaplasia, otherwise without any glandular dysplasia, significant stromal chronic inflammation, or features of active reflux activity observed D, proximal esophagus biopsy: -Esophageal squamous mucosa with focal mild nonspecific acanthosis and minor lymphocytic Specimen: [id number] Received: 07/23/24 Status: MARIE Trevino Num: [id number] Spec Type: Surgical Subm Dr: Yue Ramey DO Tissues: A Small Intestine - Biopsy/Polyp (SMALL BOWEL R/O CELIAC) B GASTRIC FOR HP (GASTRIC BX R/O H.PYLORI) C Esophagus Biopsy (GIE JUNCTION R/O ESPOHAGITIS) D Esophagus Biopsy (PROXIMAL ESPHAGUS BX R/O EOE) E Colon Biopsy (SIGMOID POLYP) Procedures: HE/10, Gross/Micro L4/5, H PYLORI Patient: Ira Delarosa [id number] (Continued) Specimen: [id number] Received: 07/23/24 (Continued) Pathological Diagnosis (Continued) Signed (signature on file) Fannie Parrish MD 07/25/24 1232 Specimen: [id number] Received: 07/23/24 Status: MARIE Trevino Num: [id number] Spec Type: Surgical Subm Dr: Yue Ramey DO Tissues: A Small Intestine - Biopsy/Polyp (SMALL BOWEL R/O CELIAC) B GASTRIC FOR HP (GASTRIC BX R/O H.PYLORI) C Esophagus Biopsy (GIE JUNCTION R/O ESPOHAGITIS) D Esophagus Biopsy (PROXIMAL ESPHAGUS BX R/O EOE) E Colon Biopsy (SIGMOID POLYP) Procedures: HE/10, Gross/Micro L4/5, H PYLORI Patient: Ira Delarosa [id number] (Continued) Specimen: [id number] Received: 07/23/24 (Continued) Pathological Diagnosis (Continued) exocytosis, otherwise without any eosinophilic esophagitis identified E, sigmoid polyps biopsies: -Multiple fragments of hyperplastic polyp(s) Clinical Information Dysphagia Gross Description Part a received in formalin with the patient's name and small bowel biopsy are 3 jackson portions of soft tissue each measuring 0.3 cm in greatest dimension. The specimen is entirely submitted in cassette A1. Part B received in formalin with the patient's name and gastric biopsy are 2 jackson portions of soft tissue measuring 0.3 and 0.4 cm in greatest dimension. Specimen is entirely submitted in cassette B1. Part C received in formalin with the patient's name and GE junction are 2 jakcson portions of soft tissue measuring 0.3 and 0.4 cm in greatest dimension. The specimen is entirely submitted in cassette C1. Part D received in formalin with the patient's name and proximal esophagus are 2 jackson-white portions of soft tissue both measuring 0.2 cm in greatest dimension. The specimen is entirely submitted in cassette D1. Part E received in formalin with the patient's name and sigmoid polyps are multiple jackson portions of soft tissue ranging in size from 0.2 to 0.4 cm in greatest dimension. The specimen is (more content not included)... Normal [facility] XR chest 2V*on 06-13-2024 XR chest 2V* [facility] [address] [address] XRay Report Signed Patient: Ira Delarosa MR#: [id number] 9 : 1980 Acct:[id number] Age/Sex: 44 / F ADM Date: 06/13/24 Loc: ER Room: Type: PRE ER Attending Dr: Copies to: Marina Kim APRN TEMP, PROVIDER Ordering Provider: Marina Kim APRN Date of Service: 06/13/24 XR/XR chest 2V*: Shortness of Breath/Dyspnea XR chest 2V* 06/13/2024 2:41 PM SIGNS AND SYMPTOMS: Left-sided neck pain with numbness and tingling, shortness of breath PROTOCOL: Frontal and lateral radiographs of the chest COMPARISON: None FINDINGS: The trachea is midline. The heart and mediastinal structures are within normal limits. The lung parenchyma is clear. The bony thorax is intact. There is evidence of prior cholecystectomy. XR/XR chest 2V* IMPRESSION: No acute cardiopulmonary pathology. Impression dictated by: Julito Molina M.D.06/13/2024 2:58 PM Dictation Location: [place] [address] Transcribed By: [facility] 06/13/24 1458 Dictated By: Julito Molina II, MD 06/13/24 1457 Signed By: 06/13/24 1458 Normal [facility] BI MAMMOGRAM SCREENING TOMOS YNTHESIS BILATERALon 10-11-2023 BI MAMMOGRAM SCREENING TOMOSYNTHESIS BILATERAL This is a summary report. The complete report is available in the patient's medical record. If you cannot access the medical record, please contact the sending organization for a detailed fax or copy. EXAMINATION: BI MAMMOGRAM SCREENING TOMOSYNTHESIS BILATERAL CLINICAL HISTORY: screening COMPARISON: Priors from 2021. RESULT: 3-D tomosynthesis imaging of the bilateral breast(s) was performed. Density: Scattered fibroglandular density [2] There are no suspicious masses or asymmetries, areas of architectural distortion or suspicious areas of microcalcifications. IMPRESSION: BIRADS 1 - Negative Recommended follow-up: Routine Screening Mamm Board Certified Radiologists. Accredited by the ACR and FDA. MAMMOGRAPHY IS VERY IMPORTANT TO YOUR HEALTH. THE [place] [employer] GUIDELINES RECOMMEND THAT WOMEN 40 YEARS OF AGE AND OLDER SHOULD HAVE A MAMMOGRAM EVERY YEAR. A REMINDER LETTER WILL BE SENT AT THE APPROPRIATE TIME. THIS FACILITY UTILIZES A REMINDER SYSTEM TO ENSURE ALL PATIENTS RECEIVE REMINDER NOTIFICATIONS AT THE APPROPRIATE TIME BASED ON THE RECOMMENDATIONS OF THIS EXAM. THIS INCLUDES REMINDERS FOR ROUTINE SCREENING MAMMOGRAMS, DIAGNOSTIC MAMMOGRAMS IN WHICH THE PATIENT IS ASKED TO RETURN FOR ADDITIONAL VIEWS, OR OTHER BREAST IMAGING INTERVENTIONS WHEN APPROPRIATE. THE PATIENT WILL BE PLACED IN THE APPROPRIATE REMINDER SYSTEM INCLUDING A REMINDER AT THE APPROPRIATE TIME FOR ANY PENDING ADDITIONAL VIEWS. ELECTRONICALLY SIGNED BY: Luciano Forman MD Normal Not Available Comment on above: Order Comment: Spot compression and us prn US ABDOMENon 10-11-2023 US ABDOMEN EXAMINATION: US ABDOMEN HISTORY: weight loss COMPARISON: None available TECHNIQUE: Ultrasound evaluation was performed of the abdomen FINDINGS: Increased echogenicity of the liver. Normal contour of the liver. No liver lesion or intrahepatic biliary dilatation identified. Liver length measured at approximately 13.7 cm. The gallbladder is surgically absent. Common bile duct is normal measuring approximately 4.4 mm in diameter. No overt abnormality of the pancreas. Normal morphology and echogenicity of the spleen. The spleen measures 9.2 x 6.4 x 4.1 cm. The right kidney measures 10.1 cm in length and the left kidney measures 10.6 cm in length. Cortical medullary differentiation is maintained. No shadowing calculi or hydronephrosis. Normal appearance of the aorta and IVC. Within the soft tissues of the midline abdomen near the sternum there is an ill-defined area of nonspecific shadowing. IMPRESSION: Hepatic steatosis. Ill-defined area of nonspecific shadowing within the soft tissues of the midline abdomen near the sternum may represent a prominent xiphoid process however CT of the abdomen and pelvis with contrast is recommended to further evaluate. ELECTRONICALLY SIGNED BY: Adelfo Novak, Normal Not Available Quick Strepon 04-04-2023 S. pyogenes Org specific cx Ql (Throat) Negative [employer] Other Quick Strep [employer] Other Diagnostic Mammogram, Bilate ral w/Brigido (3D)on 09-30-2022 Diagnostic Mammogram, Bilateral w/Brigido (3D) CLINICAL HISTORY: Diagnostic Mammogram. Right breast lump. Bilateral breast tenderness. Bilateral whitish nipple discharge. COMPARISON: Screening mammogram from 2019 TECHNIQUE: 2D and 3D mammogram imaging of both breasts and a limited right breast ultrasound was performed. RESULT: DENSITY: There are scattered areas of fibroglandular density. There is no suspicious mass, asymmetry, architectural distortion, or calcification. No significant change since the prior mammograms. On the right breast ultrasound at the area of the lump at approximately the 4 o'clock position, there are no suspicious findings. No focal mass or lesion. IMPRESSION: BIRADS 1 : NEGATIVE, NORMAL INTERVAL FOLLOW UP FOLLOW-UP: 12 months DENSITY: Scattered MAMMOGRAPHY IS VERY IMPORTANT TO YOUR HEALTH. THE CURRENT [employer] GUIDELINES RECOMMENDS ANNUAL MAMMOGRAPHY BEGINNING AT AGE 39 THIS FACILITY USES A REMINDER SYSTEM TO ENSURE ALL PATIENTS RECEIVE REMINDER NOTIFICATIONS AT THE APPROPRIATE TIME BASED ON THE RECOMMENDATIONS OF THIS EXAM. Board Certified Radiologist. Accredited by the ACR and FDA. Report reported and signed by Luciano Forman on 09/30/2022 1401 Normal [facility] US Breast Complete, Righton 09-30-2022 US Breast Complete, Right Refer to concurrent diagnostic mammogram dictation. Report reported and signed by Luciano Forman on 09/30/2022 1402 Normal [facility] Nish 10-01-2021 CNPN Telephone (OPHTLN) IRA DELAROSA ([id number]) 1980 F Date Time Provider Department 10/01/21 JEFFREY ANDREWS During your visit today, we recorded the following information about you: Jeffrey Andrews OD 10/01/2021 5:02 PM Signed Called patient, left voicemail. Confirming if she was able to fill Tobradex drop Rx? Prior auth was sent to me but indicated to ignore 2/2 another prior auth request was completed. Patient to call office if further assistance is needed. Allergies As of Date: 10/01/2021 Noted Allergy Reaction SEASONAL ALLERGIES 09/30/2021 14 - Other: See Comments Comments: Burning itching eyes Date Reviewed: 09/30/2021 Reviewed by: Jeffrey Andrews OD - Fully Assessed Reason for Visit: Patient Update [1234] Prescriptions as of 10/01/2021 - amLODIPine (NORVASC) 2.5 mg tablet - albuterol HFA (PROVENTIL HFA, VENTOLIN HFA) 90 mcg/actuation inhaler - escitalopram oxalate (LEXAPRO) 5 mg tablet 1 tablet - pantoprazole DR (PROTONIX) 40 mg tablet - tobramycin-dexAMETHa sone (TOBRADEX) 0.3-0.1 % ophthalmic suspension Use 1 Drop in the left eye four times daily. Problem List As Of Date: 10/01/2021 (None) Encounter Status:Closed by JEFFREY ANDREWS on 10/01/21 Normal [facility] ED Note-Physicianon 06-22-20 ED Note-Physician Basic Information Time Seen: Christiana SWEET, Paulo Dhillon 06/18/2019 20:28 Chief Complaint Pt reports positive test on tuesday and then again today. Pt reports lines are very light. Pt reports hx of ectopic preganncy and is now having intermnnittent left abdominal pain. History of Present Illness 39-year-old white female presents emergency room with concerns of having multiple faintly positive urine sticks at home concerned that she has had previous ectopics and has had previous multiple miscarries. Patient has 2 children ages 10 and 12 she is not trying to get . She denies any abdominal pain and denies any urinary symptoms. She has to call for an appointment with a Dr Blackman in [place]. Patient is recently relocated to [place] and has decided she is going to call and make an appointment. Patient is a smoker she is not diabetic. She has brought at least 4 urine sticks that appeared negative to me but she states there is extremely faint line. Review of Systems ?All organ systems are reviewed. Pertinent positive and negative findings as mentioned in the HPI? Physical Exam Vitals & Measurements T: 36.6 ?C (Oral) HR: 80(Peripheral) RR: 16 BP: 131/83 SpO2: 100% General: Alert and oriented, No acute distress, Comfortable in room C. Eye: Pupils are equal, round and reactive to light, Extraocular movements are intact. HENT: Normocephalic, Nose Patent, no discharge Neck: Supple, Non-tender Respiratory: Respirations are non-labored, Symmetrical chest wall expansion, No chest wall tenderness, no wheezing rhonchi rales or rubs noted. Cardiovascular: Normal rate, Regular rhythm, Good pulses equal in all extremities. Gastrointestinal: Soft, Non-tender, Non-distended, Normal bowel sounds. Musculoskeletal: Normal range of motion, Normal strength. Neurologic: Alert, Oriented, Normal sensory, Normal motor function. Cognition and Speech: Oriented, Speech clear and coherent. Psychiatric: Cooperative, Anxious mood & affect. Integumentary: Warm, Dry, Strong Medical Decision Making Patient is offered a urinalysis and further testing but states there is no knee. Patient states she do not believe are results but yet denies any further testing or willingness to stay. Assessment/Plan test negative (Z32.02: Encounter for test, result negative) Orders: Beta hCG Qual Extra Green Li Tube Disposition Plan Patient Discharge Condition Stable Discharge Prescription List Prescriptions No active prescription medications Follow-up With When Contact Information Jie HUGGINS In 3 days 06/21/2019 EDT [address] [place] [address]- Business (1) Additional Instructions: Dr Ames and Jose are in the same office, call tomorrow for recheck appointment and further evaluation if unable to get into [facility] as expected. Dr Ames MOMD TEACHER In 3 days 06/21/2019 EDT Additional Instructions: BEVERLEY SESAY In 3 days 06/21/2019 EDT [address] [place] [address] Business (1) Additional Instructions: Patient Education Test Information Attestation Dr Castañeda has been informed about evaluation and treatment of patient during this visit. This report was transcribed using voice recognition software. Every effort was made to ensure accuracy, however, inadvertently computerized it infrastructure engineer mistakes may be present. Patient was treated and evaluated by the physician front desk assistant. The attending physician was in the emergency department at all times and supervised care. The case was discussed with the attending physician and diagnostics were reviewed as needed Problem List/Past Medical History Ongoing No qualifying data Historical No qualifying data Medications Inpatient No active inpatient medications Home No active home medications Allergies Demerol (hives) Social History Alcohol - Denies Alcohol Use, 06/18/2019 Substance Abuse - Denies Substance Abuse, 06/18/2019 Tobacco - Denies Tobacco Use, 06/18/2019 Lab Results Beta hCG Ql: NEGATIVE1 (06/18/19 19:27:00 EDT) Diagnostic Results No qualifying data available. Normal [facility] Comment on above: Result Comment: Elec tronically Signed By: Paulo Villeda PA-C\.br\Date and Time Signed: 06/18/19 21:22 EDT\.br\Electronically Co-Signed By: Jefe Castañeda MD\.br\Date and Time Co-Signed: 06/22/19 08:13 EDT Coding Summary.on 06-20-2019 Coding Summary. CODING DATE: 06/20/2019 FINAL [facility] DSC STATUS: Home (Routine DC) PAYOR: Self Pay ADMIT DX: REASON FOR VISIT DX: Z32.00 Encounter for test, result unknown R10.9 Unspecified abdominal pain FINAL DX: PRINCIPAL: Z32.02 Encounter for test, result negative SECONDARY: PROCEDURES DOCTOR NAME DATE NOTE: The code number assigned matches the documented diagnosis and / or procedure in the patient's chart. However, the narrative phrase printed from the coding software may appear abbreviated, or result in slightly different terminology. Coded By: Pau Suero Date Saved: 06/20/2019 11:50 am Normal [facility] B hCG Qualon 06-18-2019 Beta hCG Ql Negative [facility] Comment on above: Performed By: #### 2 [id number] #### [facility] [address] [place] [address] ED Clinical Summaryon 2018 ED Clinical Summary [place] [id number] ED Clinical Summary Person Information Name: IRA DELAROSA/[facility] Age: 39 Years : 1980 12:00 AM Sex: Female Language: Bengali PCP: SHAMA SOOD, BEVERLEY SAM Marital Status: Visit Id: Visit Reason: Test; +PREG TST, LFT SIDE PAIN, ETOPIC HX BOTH SIDES Speciality: Acuity: 3 Enc Type: Emergency Med Service: Emergency Arrival: 06/18/2019 6:14 PM Discharge: 06/18/2019 9:05 PM LOS: 000 02:51 Checkin: 06/18/2019 6:14 PM Checkout: 06/18/2019 9:05 PM Dispo Type: Home (Routine DC) EVENTS: Event Name Event Status Request Date/Time Start Date/Time Complete Date/Time Arrive Complete 06/18/2019 6:14 PM 06/18/2019 6:14 PM 06/18/2019 6:14 PM Document Home Meds Request 06/18/2019 6:14 PM Triage Complete 06/18/2019 6:14 PM 06/18/2019 6:55 PM 06/18/2019 6:55 PM Registration Complete 06/18/2019 6:25 PM 06/18/2019 6:25 PM 06/18/2019 6:25 PM Reg Complete Request 06/18/2019 6:25 PM Reg Bed Request Complete 06/18/2019 6:25 PM 06/18/2019 6:25 PM 06/18/2019 6:25 PM Pending Labs Complete 06/18/2019 7:16 PM 06/18/2019 7:49 PM Bed Assign Complete 06/18/2019 8:03 PM 06/18/2019 8:03 PM 06/18/2019 8:[address] Exam Complete 06/18/2019 8:03 PM 06/18/2019 8:28 PM 06/18/2019 8:28 PM RN Exam Complete 06/18/2019 8:03 PM 06/18/2019 8:19 PM 06/18/2019 8:19 PM Pending Labs Complete 06/18/2019 8:11 PM 06/18/2019 8:11 PM 06/18/2019 8:11 PM Registration Complete 06/18/2019 8:28 PM 06/18/2019 8:30 PM 06/18/2019 8:[address] Exam Complete 06/18/2019 8:32 PM 06/18/2019 8:32 PM 06/18/2019 8:32 PM Registration Complete 06/18/2019 8:32 PM 06/18/2019 8:34 PM 06/18/2019 8:34 PM Discharge Complete 06/18/2019 8:56 PM 06/18/2019 9:05 PM 06/18/2019 9:05 PM Transfer Complete 06/18/2019 9:05 PM 06/18/2019 9:05 PM 06/18/2019 9:05 PM ADDRESS: [address] [place] [id number] PHYS DOC NOTES: MEDICAL INFORMATION: Prescriptions Given: PATIENT EDUCATION INFORMATION: Instructions: Test Information Follow up: With: Address: When: Jie HUGGINS [address] [place] [address] Business (1) In 3 days 06/21/2019 Comments: Dr Ames and Jose are in the same office, call tomorrow for recheck appointment and further evaluation if unable to get into [facility] and [place] as expected. With: Address: When: Dr Ames MOMD TEACHER In 3 days 06/21/2019 With: Address: When: BEVERLEY SESAY [address] [place], [place] [id number] Business (1) In 3 days 06/21/2019 DIAGNOSIS: test negative Normal [facility] ED Patient Education Noteon 06-18-2019 ED Patient Education Note Obstetrics and Gynecology Tests HOW DO TESTS WORK? All tests look for a special hormone in the urine or blood that is only present in women. This hormone, human chorionic gonadotropin (hCG), is also called the hormone. WHAT IS THE DIFFERENCE BETWEEN A URINE AND A BLOOD TEST? IS ONE BETTER THAN THE OTHER? There are two types of tests. ? Blood tests. ? Urine tests. Both tests look for the presence of hCG, the hormone. Many women use a urine test or home test (HPT) to find out if they are . HPTs are cheap, easy to use, can be done at home, and are private. When a woman has a positive result on an HPT, she needs to see her caregiver right away. The caregiver can confirm a positive HPT result with another urine test, a blood test, ultrasound, and a pelvic exam. There are two types of blood tests you can get from a caregiver. ? A quantitative blood test (or the beta hCG test). This test measures the exact amount of hCG in the blood. This means it can mixing picker tender very small amounts of hCG, making it a very accurate test. ? A qualitative hCG blood test. This test gives a simple yes or no answer to whether you are . This test is more like a urine test in terms of its accuracy. Blood tests can mixing picker tender hCG earlier in a than urine tests can. Blood tests can tell if you are about 6 to 8 days after you release an egg from an ovary (ovulate). Urine tests can determine about 2 weeks after ovulation. HOW IS A HOME TEST DONE? There are many types of home tests or HPTs that can be bought irvt-qld-tnqpgra at drug or discount stores. ? Some involve collecting your urine in a cup and dipping a stick into the urine or putting some of the urine into a special container with an eyedropper. ? Others are done by placing a stick into your urine stream. ? Tests vary in how long you need to wait for the stick or container to turn a certain color or have a symbol on it (like a plus or a minus). ? All tests come with written instructions. Most tests also have toll-free phone numbers to call if you have any questions about how to do the test or read the results. HOW ACCURATE ARE HOME TESTS? HPTs are very accurate. Most brands of HPTs say they are 97% to 99% accurate when taken 1 week after missing your menstrual period, but this can vary with actual use. Each brand varies in how sensitive it is in picking up the hormone hCG. If a test is not done correctly, it will be less accurate. Always check the package to make sure it is not past its expiration date. If it is, it will not be accurate. Most brands of HPTs tell users to do the test again in a few days, no matter what the results. If you use an HPT too early in your , you may not have enough of the hormone hCG in your urine to have a positive test result. Most HPTs will be accurate if you test yourself around the time your period is due (about 2 weeks after you ovulate). You can get a negative test result if you are not or if you ovulated later than you thought you did. You may also have problems with the , which affects the amount of hCG you have in your urine. If your HPT is negative, test yourself again within a few days to 1 week. If you keep getting a negative result and think you are , talk with your caregiver right away about getting a blood test. FALSE POSITIVE TEST A false positive HPT can happen if there is blood or protein present in your urine. A false positive can also happen if you were recently or if you take a test too soon after taking fertility drug that contains hCG. Also, some prescription medicines such as water pills (diuretics), tranquilizers, seizure medicines, psychiatric medicines, and allergy and nausea medicines (promethazine) give false positive readings. FALSE NEGATIVE TEST ? A false negative HPT can happen if you do the test too early. Try to wait until you are at least 1 day late for your menstrual period. ? It may happen if you wait too long to test the urine (longer than 15 minutes). ? It may also happen if the urine is too diluted because you drank a lot of fluids before getting the urine sample. It is best to test the first morning urine after you get out of bed. If your menstrual period did not start after a week of a negative HPT, repeat the test. CAN ANYTHING INTERFERE WITH HOME TEST RESULTS? Most medicines, both gttd-ztk-nofyzrk and prescription drugs, including control pills and antibiotics, should not affect the results of a HPT. Only those drugs that have the hormone hCG in them can give a false positive test result. Drugs that have hCG in them may be used for treating infertility (not being able to get ). Alcohol and illegal drugs do not affect HPT results, but you should not be using these substances if you are trying to get . If you have a positive test, call your caregiver to make an appointment to begin care. Document Released: 11/16/2004 Document Revised: 02/05/2013 Document Reviewed: 02/28/2015 ExitCare? Patient Information ?2014 [employer]. This information is not intended to replace advice given to you by your health care provider. Make sure you discuss any questions you have with your health care provider. Normal [facility] ED Patient Summaryon 019 ED Patient Summary [place] [id number] Patient Discharge Instructions Person Information Name: IRA DELAROSA Age: 39 Years Arrival Date: 06/18/2019 6:14 PM Discharge Diagnosis: test negative Primary Care Physician: SHAMA SOOD, BEVRELEY SAM Provider Information Primary Provider: Jefe Castañeda MD Advanced Mixer Pigment:Paulo Villeda PA-C The exam and treatment you received in the Emergency Department were for an urgent problem and are not intended as complete care. It is important that you follow up with a doctor, nurse practitioner, or physician?s front desk assistant for ongoing care. If your symptoms become worse or you do not improve as expected and you are unable to reach your usual health care provider, you should return to the Emergency Department. We are available 24 hours a day. ISAURA IRA has been given the following list of patient education materials, prescriptions and follow-up instructions: Follow-up Instructions: With: Address: When: Jie HUGGINS [address] [place] [address] [facility] (1) In 3 days 06/21/2019 Comments: Dr Ames and Jose are in the same office, call tomorrow for recheck appointment and further evaluation if unable to get into [facility] as expected. With: Address: When: Dr Ames [facility] In 3 days 06/21/2019 With: Address: When: BEVERLEY SESAY [address] [place] [id number] [facility] (1) In 3 days 06/21/2019 In the event that this physician does not participate in your insurance network, please consult with your insurance company to find a nearby participating provider. Patient Education Materials: Test Information A MESSAGE TO ALL PATIENTS REGARDING OPIOIDS PRESCRIPTION OPIOIDS: WHAT YOU NEED TO KNOW Prescription opioids can be used to help relieve cwbyuxmw-ar-kallcx pain and are often prescribed following a surgery or injury, or for certain health conditions. These medications can be an important part of the treatment but also come with serious risks. It is important to work with your healthcare provider to make sure you are getting the safest, most effective care. WHAT ARE THE RISKS AND SIDE EFFECTS OF OPIOID USE? Prescription opioids carry serious risks of addiction and overdose, especially with prolonged use. An opioid overdose, often marked by slowed breathing, can cause sudden . The use of prescription opioids can have a number of side effects as well, even when taken as directed: ? Tolerance?meaning you might need to take more of the medication for the same pain relief ? Physical dependence?meaning you have symptoms of withdrawal when a medication is stopped ? Increased sensitivity to pain ? Constipation ? Nausea, vomiting, and dry mouth ? Sleepiness and dizziness ? Confusion ? Depression ? Low levels of testosterone that can result in lower sex drive, energy, and strength ? Itching and sweating RISKS ARE GREATER WITH: ? History of drug misuse, substance use disorder, or overdose ? Mental health conditions (such as depression or anxiety) ? Sleep apnea ? Older age (65 years and older) ? Avoid alcohol while taking prescription opioids. Also, unless specifically advised by your health care provider, medications to avoid include: ? Benzodiazepines (such as Xanax or Valium) ? Muscle relaxants (such as Soma or Flexeril) ? Hypnotics (such as Ambien or Lunesta) ? Other prescription opioids KNOW YOUR OPTIONS Talk to your health care provider about ways to manage your pain that don?t involve prescription opioids. Some of these options may actually work better and have fewer risks and side effects. Options may include: ? Pain relievers such as acetaminophen, ibuprofen, and naproxen ? Some medication that are also used for depression or seizures ? Physical therapy and exercise ? Cognitive behavioral therapy, a psychological, goal-directed approach, in which patients learn how to modify physical, behavioral, and emotional triggers of pain and stress. IF YOU ARE PRESCRIBED OPIOIDS FOR PAIN: ? Never take opioids in greater amounts or more often than prescribed. ? Follow up with your primary health care provider. o Work together to create a plan on how to manage your pain. o Talk about ways to help manage your pain that don?t involve prescription opioids. o Talk about any and all concerns and side effects. ? Help prevent misuse and abuse o Never sell or share prescription opioids. o Never use another person?s prescription opioids. ? Store prescription opioids in a secure place and out of reach of others (this may include visitors, children, friends, and family). ? Safely dispose of unused prescription opioids: Find your community drug take-back program or your pharmacy mail-back program, or flush them down the toilet, following guidance from the Food and Drug Administration (www.fda.gov/Drugs/R esourcesForYou). ? Visit www.cdc.gov/drugover dose to learn about the risks of opioids abuse and overdose. ? If you believe you may be struggling with addiction, tell your health home day care provider and ask for guidance or call SAM[employer]?S National Helpline at 6-021-054-HELP. v Source: US Department of Health and Human Services/Center for Disease Control & Prevention [facility] Medications Given: Medication Dose Route No medications found. Medication Information: Comment: Pharmacy Information: Thank you for choosing [facility] Patient Education Materials: Tests HOW DO TESTS WORK? All tests look for a special hormone in the urine or blood that is only present in women. This hormone, human chorionic gonadotropin (hCG), is also called the hormone. WHAT IS THE DIFFERENCE BETWEEN A URINE AND A BLOOD TEST? IS ONE BETTER THAN THE OTHER? There are two types of tests. ? Blood tests. ? Urine tests. Both tests look for the presence of hCG, the hormone. Many women use a urine test or home test (HPT) to find out if they are . HPTs are cheap, easy to use, can be done at home, and are private. When a woman has a positive result on an HPT, she needs to see her caregiver right away. The caregiver can confirm a positive HPT result with another urine test, a blood test, ultrasound, and a pelvic exam. There are two types of blood tests you can get from a caregiver. ? A quantitative blood test (or the beta hCG test). This test measures the exact amount of hCG in the blood. This means it can mixing picker tender very small amounts of hCG, making it a very accurate test. ? A qualitative hCG blood test. This test gives a simple yes or no answer to whether you are . This test is more like a urine test in terms of its accuracy. Blood tests can mixing picker tender hCG earlier in a than urine tests can. Blood tests can tell if you are about 6 to 8 days after you release an egg from an ovary (ovulate). Urine tests can determine about 2 weeks after ovulation. HOW IS A HOME TEST DONE? There are many types of home tests or HPTs that can be bought ceiu-gwm-tpgbdik at drug or [employer] stores. ? Some involve collecting your urine in a cup and dipping a stick into the urine or putting some of the urine into a special container with an eyedropper. ? Others are done by placing a stick into your urine stream. ? Tests vary in how long you need to wait for the stick or container to turn a certain color or have a symbol on it (like a plus or a minus). ? All tests come with written instructions. Most tests also have toll-free phone numbers to call if you have any questions about how to do the test or read the results. HOW ACCURATE ARE HOME TESTS? HPTs are very accurate. Most brands of HPTs say they are 97% to 99% accurate when taken 1 week after missing your menstrual period, but this can vary with actual use. Each brand varies in how sensitive it is in picking up the hormone hCG. If a test is not done correctly, it will be less accurate. Always check the package to make sure it is not past its expiration date. If it is, it will not be accurate. Most brands of HPTs tell users to do the test again in a few days, no matter what the results. If you use an HPT too early in your , you may not have enough of the hormone hCG in your urine to have a positive test result. Most HPTs will be accurate if you test yourself around the time your period is due (about 2 weeks after you ovulate). You can get a negative test result if you are not or if you ovulated later than you thought you did. You may also have problems with the , which affects the amount of hCG you have in your urine. If your HPT is negative, test yourself again within a few days to 1 week. If you keep getting a negative result and think you are , talk with your caregiver right away about getting a blood test. FALSE POSITIVE TEST A false positive HPT can happen if there is blood or protein present in your urine. A false positive can also happen if you were recently or if you take a test too soon after taking fertility drug that contains hCG. Also, some prescription medicines such as water pills (diuretics), tranquilizers, seizure medicines, psychiatric medicines, and allergy and nausea medicines (promethazine) give false positive readings. FALSE NEGATIVE TEST ? A false negative HPT can happen if you do the test too early. Try to wait until you are at least 1 day late for your menstrual period. ? It may happen if you wait too long to test the urine (longer than 15 minutes). ? It may also happen if the urine is too diluted because you drank a lot of fluids before getting the urine sample. It is best to test the first morning urine after you get out of bed. If your menstrual period did not start after a week of a negative HPT, repeat the test. CAN ANYTHING INTERFERE WITH HOME TEST RESULTS? Most medicines, both [id number] and prescription drugs, including control pills and antibiotics, should not affect the results of a HPT. Only those drugs that have the hormone hCG in them can give a false positive test result. Drugs that have hCG in them may be used for treating infertility (not being able to get ). Alcohol and illegal drugs do not affect HPT results, but you should not be using these substances if you are trying to get . If you have a positive test, call your caregiver to make an appointment to begin care. Document Released: 11/16/2004 Document Revised: 02/05/2013 Document Reviewed: 02/28/2015 ExitCare? Patient Information ?2015 [employer]. This information is not intended to replace advice given to you by your health care provider. Make sure you discuss any questions you have with your health care provider. IISAURA RANDI , have received the following patient education materials/instructio ns and have verbalized understanding: Patient Education Materials: Test Information Follow-up Instructions: With: Address: When: Jie HUGGINS [address] [place] [id number] Business (1) In 3 days 06/21/2019 Comments: Dr Ames and Jose are in the same office, call tomorrow for recheck appointment and further evaluation if unable to get into [facility] as expected. With: Address: When: Dr Ames MOMD TEACHER In 3 days 06/21/2019 With: Address: When: BEVERLEY SESAY [address] [place] [id number] [facility] (1) In 3 days 06/21/2019 Prescriptions: Patient Signature Date Clinician/Nurse Signature Date 06/18/19 21:05:51 Normal [facility] Progress Note-Nurseon 2018 Progress Note-Nurse CARLOS Bates at bedside for results update. POC includes f/u with COMPOSITE BOND WORKER for continued care. Patient verbalized understanding. Normal [facility] Progress Noteon 07-25-2018 HIM IP Note OR Director Of Product Management Normal [facility] Vital Signs Date Time Vital Sign Value Performing Clinician Facility 10-09-2024 13:01-0500 Body mass index (BMI) [Ratio] 26.29 kg/m2 Ismael Gill MD Work Phone: [facility] 10-09-2024 13:01-0500 Body weight 71.67 kg Ismael Gill MD Work Phone: [facility] 10-09-2024 13:01-0500 Diastolic blood pressure 70 mm[Hg] Ismael Gill MD Work Phone: [facility] 10-09-2024 13:01-0500 Heart rate 81 /min Ismael Gill MD Work Phone: [facility] 10-09-2024 13:01-0500 Systolic blood pressure 118 mm[Hg] Ismael Gill MD Work Phone: [facility] 07-23-2024 08:58-0400 Diastolic blood pressure 82 mm[Hg] [facility] Work Phone: [facility] 07-23-2024 08:58-0400 Heart rate 82 /min [facility] Work Phone: [facility] 07-23-2024 08:58-0400 Respiratory rate 16 /min [facility] Work Phone: [facility] 07-23-2024 08:58-0400 SaO2% (BldA) [Mass fraction] 100 % [facility] Work Phone: [facility] 07-23-2024 08:58-0400 Systolic blood pressure 115 mm[Hg] [facility] Work Phone: [facility] 07-23-2024 07:28-0400 Body height 165.1 cm [facility] Work Phone: [facility] 07-23-2024 07:28-0400 Body weight 66.22 kg [facility] Work Phone: [facility] 06-13-2024 14:11-0400 Body height 165.1 cm [facility] Work Phone: [facility] 06-13-2024 14:11-0400 Body temperature 97.9 [degF] [facility] Work Phone: [facility] 06-13-2024 14:11-0400 Body weight 81.64 kg [facility] Work Phone: [facility] 06-13-2024 14:11-0400 Diastolic blood pressure 72 mm[Hg] [facility] Work Phone: [facility] 06-13-2024 14:11-0400 Heart rate 88 /min [facility] Work Phone: [facility] 06-13-2024 14:11-0400 Respiratory rate 16 /min [facility] Work Phone: [facility] 06-13-2024 14:11-0400 SaO2% (BldA) [Mass fraction] 100 % [facility] Work Phone: [facility] 06-13-2024 14:11-0400 Systolic blood pressure 136 mm[Hg] [facility] Work Phone: [facility] 01-05-2024 13:35-0500 Body height 165.1 cm Kwabena Santana Other [employer] Other 01-05-2024 13:35-0500 Body mass index (BMI) [Ratio] 24.63 kg/m2 Kwabena Santana Other [employer] Other 01-05-2024 13:35-0500 Body temperature 98.7 [degF] Kwabena Santana Other [employer] Other 01-05-2024 13:35-0500 Body weight 67.13 kg Kwabena Santana Other [employer] Other 01-05-2024 13:35-0500 Diastolic blood pressure 85 mm[Hg] Kwabena Santana Other [employer] Other 01-05-2024 13:35-0500 Respiratory rate 18 /min Kwabena Santana Other [employer] Other 01-05-2024 13:35-0500 SaO2% (BldA) [Mass fraction] 97 % Kwabena Santana Other [employer] Other 01-05-2024 13:35-0500 Systolic blood pressure 128 mm[Hg] Kwabena Santana Other [employer] Other 04-04-2023 10:40-0400 Body height 165.1 cm Garry Carter Other [employer] Other 04-04-2023 10:40-0400 Body mass index (BMI) [Ratio] 24.96 kg/m2 Garry Carter Other [employer] Other 04-04-2023 10:40-0400 Body temperature 98.1 [degF] Garry Carter Other [employer] Other 04-04-2023 10:40-0400 Body weight 68.04 kg Garry Carter Other [employer] Other 04-04-2023 10:40-0400 Diastolic blood pressure 86 mm[Hg] Garry Carter Other [employer] Other 04-04-2023 10:40-0400 Respiratory rate 18 /min Garry Carter Other [employer] Other 04-04-2023 10:40-0400 SaO2% (BldA) [Mass fraction] 99 % Garry Carter Other [employer] Other 04-04-2023 10:40-0400 Systolic blood pressure 131 mm[Hg] Garry Carter Other [employer] Other Encounters Encounter Date Encounter Type Care Provider Facility Start: 10-12-2024 End: 10-12-2024 Orders Only Marysol Christy RN [facility] Comment on above: Cerebrovascular acci dent (CVA) due to occlusion of left carotid artery (CMS-HCC) (Primary Dx) Start: 10-09-2024 End: 10-10-2024 Telephone encounter Ismael Gill MD Work Phone: [facility] Start: 10-09-2024 End: 10-09-2024 Office outpatient visit 40 minutes Ismael Gill MD Work Phone: [facility] Comment on above: Cerebrovascular acci dent (CVA), unspecified mechanism (CMS- HCC) (Primary Dx); Palpitations Start: 10-09-2024 End: 10-09-2024 ambulatory ISMAEL GILL [facility] Start: 09-11-2024 End: 10-16-2024 Telephone encounter Marysol Christy RN [facility] Start: 09-11-2024 End: 09-11-2024 ambulatory VINEET SHERMAN [facility] Start: 08-11-2024 ambulatory SUNNI GUAJARDO [facility] Start: 07-23-2024 Non-patient / Non-visit [facility] [employer] [facility] Work Phone: [facility] Work Phone: Start: 07-23-2024 End: 07-23-2024 Admission to same day surgery center [facility] Work Phone: [facility] Work Phone: Start: 07-23-2024 End: 07-23-2024 ambulatory [facility] Work Phone: [facility] Work Phone: Start: 06-13-2024 End: 06-13-2024 Emergency department patient visit [facility] Work Phone: [facility] Work Phone: Start: 01-05-2024 End: 01-05-2024 ambulatory Kwabena Santana Other [employer] Other Start: 01-05-2024 Office outpatient vi sit 15 minutes Kwabena Santana [facility] Start: 10-11-2023 End: 10-12-2023 ambulatory KATHLEEN GREEN Not Available Start: 10-10-2023 End: 10-10-2023 ambulatory KATHLEEN GREEN Not Available Start: 04-04-2023 End: 04-04-2023 ambulatory Garry Carter Other [employer] Other Start: 04-04-2023 Office outpatient vi sit 15 minutes Garry Carter [facility] Start: 09-16-2022 End: 09-16-2022 ambulatory [facility] Work Phone: [facility] Work Phone: Start: 09-16-2022 End: 09-16-2022 Patient encounter procedure [facility] Work Phone: [facility] [place] Start: 06-19-2022 End: 06-19-2022 Patient encounter procedure [facility] Work Phone: [facility] [place] Start: 05-24-2022 End: 05-24-2022 Patient encounter procedure [facility] Work Phone: [facility] [address] Start: 09-30-2021 End: 09-30-2021 Patient encounter procedure Jeffrey Mckeon Darryl OD Work Phone: Ophthalmology Comment on above: Infiltrate of cornea (Primary Dx); Wears contact lenses Procedures Date Procedure Procedure Detail Performing Clinician Start: 10-09-2024 Adult depression screening assessment Ismael Gill MD Work Phone: Start: 07-23-2024 Esophagogastroduodenoscopy [facility] Work Phone: Start: 06-13-2024 Plain chest X-ray [facility] Work Phone: Start: 06-19-2022 MR abdomen wo con [facility] Work Phone: Start: 05-24-2022 CT of abdomen without contrast [facility] Work Phone: Start: 04-26-2017 Microscopic observation [Identifier] in Cervix by Cyto stain Ismael Gill MD Work Phone: Plan of Treatment Date Care Activity Detail Author Start: 03-23-2028 DTaP,Tdap and Td Vaccines (3 - Td or Tdap) DTaP,Tdap and Td Vaccines (3 - Td or Tdap) [facility] Start: 10-09-2025 [facility] Start: 10-09-2025 Depression [facility] Start: 09-11-2025 Tobacco Screening [facility] Start: 10-12-2024 End: 10-12-2025 Wireless Telemetry (In Office) [employer] Work Phone: Comment on above: Expected: 10/12/2024 , Expires: 10/12/2025 Start: 10-09-2024 End: 10-09-2025 Event monitor Event monitor Cardiac Services Routine Cerebrovascular accident (CVA), unspecified mechanism ([facility]-HCC) Palpitations Expected: 10/09/2024, Expires: 10/09/2025 [employer] Work Phone: Comment on above: Expected: 10/09/2024 , Expires: 10/09/2025 Start: 07-29-2024 Influenza vaccination Influenza Vacc ine [facility] Start: 07-23-[address] [facility] Start: 06-13-[address] [facility] Start: 09-16-2022 Plain X-ray of left elbow XR elbow LT min 3V* [facility] Start: 07-29-2021 Influenza vaccination INFLUENZA (#1) [facility] Start: 04-26-2020 Screening for malign ant neoplasm of cervix Pap Smear [facility] Start: 2019 Mammography MAMMOGRAM [facility] Start: 2009 HPV TESTING HPV TESTING [facility] Start: 2000 PAP TESTING PAP TESTING [facility] Start: 1998 Urine microalbumin profile DTAP,TDAP,TD (1 - Tdap) [facility] Start: 1997 Adult BMI Follow Up Plan Adult BMI Follow Up Plan [facility] Start: 1997 HEPATITIS C SCREENING HEPATITIS C SC REENING [facility] Start: 1997 HIV SCREENING HIV SCREENING [facility] Start: 1991 Adult depression screening assessment DEPRESSION SCREENING [facility] Start: 1991 COVID-19 VACCINE (1) COVID-19 VACCIN E (1) [facility] Start: 1979 Tobacco Counseling Tobacco Counselin g [facility] Anion gap measurement [facility] aPTT in Platelet poo r plasma by Coagulation assay [facility] Basophils [#/volume] in Blood by Automated count [facility] Basophils/100 leukocytes in Blood by Automated count [facility] Eosinophils/100 leukocytes in Blood by Automated count [facility] Erythrocyte distribution width [Ratio] by Automated count [facility] Erythrocytes [#/volu me] in Blood [facility] Hematocrit [Volume Fraction] of Blood [facility] Hemoglobin [Mass/volume] in Blood [facility] INR in Platelet poor plasma by Coagulation assay [facility] Leukocytes [#/volume ] corrected for nucleated erythrocytes in Blood by Automated coun [facility] Leukocytes [#/volume ] in Blood [facility] Lymphocytes [#/volum e] in Blood by Automated count [facility] Lymphocytes/100 leukocytes in Blood by Automated count [facility] MCH [Entitic mass] b y Automated count [facility] MCHC [Mass/volume] b y Automated count [facility] MCV [Entitic volume] by Automated count [facility] Monocytes [#/volume] in Blood by Automated count [facility] Monocytes/100 leukocytes in Blood by Automated count [facility] Neutrophils [#/volum e] in Blood by Automated count [facility] Neutrophils/100 leukocytes in Blood by Automated count [facility] Nucleated erythrocyt es [Presence] in Blood by Automated count [facility] Patient Education High Fiber t Esophagitis Diverticulosis (DC) Colon Polypectomy (DC) Know your Meds [facility] Work Phone: Patient referral [facility] Work Phone: Platelet mean volume [Entitic volume] in Blood by Automated count [facility] Platelets [#/volume] in Blood [facility] Prothrombin time (PT) [facility] Immunizations Immunization Date Immunization Notes Care Provider Malia gold 12-23-2016 tetanus toxoid, redu destiny diphtheria toxoid, and acellular pertussis vaccine, adsorbed Ismael Gill MD Work Phone: [facility] Payers Date Payer Category Payer Medicaid O [employer] [id number] 2024 Self-pay [id number] 2023 Unknown [id number] 2019 [facility] [employer] [id number] 2019-Present Medicaid [id number] 1979 Unknown [id number] 1979 Unknown [id number] 1979 Unknown [id number] 1979 Unknown [id number] 1979 Unknown [id number] 1979 Unknown [id number] 1979 Unknown [id number] 1979 Unknown [id number] 1979 Unknown [id number] 1979 Unknown [id number] Medicaid [employer] [id number] Unknown [place] BC/BS [id number] Unknown [id number] Social History Date Type Detail Facility Start: 11-28-1992 End: 08-11-2024 Tobacco smoking status [facility] Current every day smoker [facility] Start: 11-28-1992 History of tobacco use Cigarette Smo ker [facility] Start: 09-30-2021 End: 08-11-2024 Tobacco use and exposure Never used [facility] Start: 09-30-2021 End: 09-11-2024 Alcohol intake Ex-drinker (finding) [facility] Start: 09-30-2021 History SDOH Alcohol Frequency 1 [facility] Start: 1979 Sex Assigned At Not on file [facility] Start: 09-23-2021 End: 07-23-2024 Tobacco smoking status ARIS Smoker (finding) [facility] Start: 1980 Sex Assigned At Female F [facility] Start: 12-17-2020 End: 08-11-2024 Sex Assigned At [facility] [employer] Other Start: 12-17-2020 End: 08-11-2024 Cigarettes smoked current (pack per day) - Reported 0.5 [facility] Has the [employer], or [employer] threatened to shut off services in your home in past 12Mo No [facility] How often to you hav e a drink containing alcohol? Never [facility] How many standard drinks containing alcohol do you have on a typical day? Patient does not drink [facility] Start: 07-01-2015 Sex Female (finding) [facility] Goals Date Patient Goal Desired Activity /State Personal health goal Clinical Notes 09-30-2021 to 10-09-2024 Telephone Encounter - Stephanie Knight CMA - 10/09/2024 1:57 PM ESTTelephone Encounter - Marysol Christy RN - 10/09/2024 1:57 PM ESTTelephone Encounter - Stephanie Knight CMA - 10/09/2024 1:57 PM EST Note Date & Type Note Facility 10-09-2024 Miscellaneous Notes Formattin g of this note might be different from the original. EM order placed for patient today. Pt notified to expect in 5-7 business days. Patient scheduled for [place]. They will place the monitor in person. Make sure this is what she wants otherwise we can mail it to her. Called patient and she wishes the EM be mailed to her as she resides in [place]. Please advise on this. Thank you! Okay will mail it! documented in this encounter [facility] 10-09-2024 Telephone encount er Note EM order placed for patient today. Pt notified to expect in 5-7 business days. [facility] 10-09-2024 Telephone encount er Note Patient scheduled for [place]. They will place the monitor in person. Make sure this is what she wants otherwise we can mail it to her. [facility] [employer] [facility] 10-09-2024 Telephone encount er Note Called patient and she wishes the EM be mailed to her as she resides in [place]. Please advise on this. Thank you! [facility] [employer] [facility] 10-09-2024 Telephone encount er Note Okay will mail it! [facility] [employer] [facility] 10-09-2024 History of Presen t illness Narrative Reason for visit: HPI: Ira Delarosa is a 44 y.o. female who presents for follow up for a left hemispheric stroke in July of 2024. Patient has prior medical history of hypertension, hyperlipidemia and smoking. Patient had initially presented with right-sided weakness and difficulty with her speech. CT angiogram demonstrated a left ICA thrombus. Patient was started on low intensity heparin and transitioned to Eliquis. Patient is currently on aspirin and Eliquis. Repeat CT angiogram done on August of 2024 shows resolution of the thrombus but in under lying left ICA plaque with no significant stenosis. Per patient, her mood has not been well, mainly depression. Patient was recently told by her primary care physician to start Zoloft but patient has not started the medication due to the interaction that she found with Eliquis. Patient also complains of palpitations mainly when she is going upstairs or exerting herself and these can be associated with lightheadedness and all 4 extremity numbness/tingling. Patient is present with spouse today. Patient has since quit smoking. Otherwise patient is able to ambulate and do ADLs independently without difficulty. She denies bilateral facial droop, cognitive impairment, loss of vision bilaterally, slurred speech, and swallowing difficulty. Overall she feels her condition is unchanged. Stroke risk factors include: hyperlipidemia, hypertension, and smoking. The following portions of the patient's history were reviewed and updated as appropriate: allergies, current medications, past medical history, past social history, problem list, and medication reconciliation was completed including current medication and post discharge medication. Review of Systems Review of Systems Constitutional: Positive for malaise/fatigue and weight gain. Negative for decreased appetite and weight loss. HENT: Negative for nosebleeds. Eyes: Positive for blurred vision, double vision and vision loss in right eye. Negative for vision loss in left eye and visual disturbance. Cardiovascular: Positive for chest pain. Negative for irregular heartbeat, leg swelling, near-syncope, palpitations and syncope. Respiratory: Negative for shortness of breath and sleep disturbances due to breathing. Hematologic/Lymphatic: Negative for bleeding problem. Does not bruise/bleed easily. Skin: Negative for poor wound healing. Musculoskeletal: Positive for back pain, muscle cramps and neck pain. Negative for falls, muscle weakness and myalgias. Gastrointestinal: Positive for nausea and vomiting. Negative for dysphagia. Neurological: Positive for dizziness, headaches, light-headedness, loss of balance, numbness and weakness. Negative for aphonia, difficulty with concentration, disturbances in coordination, focal weakness, paresthesias, seizures, sensory change and vertigo. Psychiatric/Behavioral: Positive for depression and memory loss. Negative for altered mental status. The patient is nervous/anxious. The patient does not have insomnia. Past Medical History Past Medical History: Diagnosis Date Asthma CVA (cerebral vascular accident) ([facility]) 08/11/2024 Ectopic , tubal x 2, right and left Hyperlipidemia Hypertension SAB (spontaneous ) Past Surgical History Past Surgical History: Procedure Laterality Date CHOLECYSTECTOMY DILATION AND CURETTAGE OF UTERUS ECTOPIC SURGERY Bilateral salpingostomy BL TUBAL LIGATION Family History The patient has a family history of Family History Problem Relation Age of Onset Cancer Mother rectal & Lumbar Hypertension Father Heart disease Maternal Grandmother Cancer Maternal Grandfather Cancer Paternal Grandmother Colon cancer Mother 58 Breast cancer Neg Hx Ovarian cancer Neg Hx Uterine cancer Neg Hx Social History Social History Socioeconomic History Marital status: Spouse name: Not on file Number of children: Not on file Years of education: Not on file Highest education level: Not on file Occupational History Employer: [employer] Tobacco Use Smoking status: Every Day Current packs/day: 0.50 Average packs/day: 0.5 packs/day for 31.9 years (15.9 ttl pk-yrs) Types: Cigarettes Start date: 1992 Smokeless tobacco: Never Vaping Use Vaping status: Never Used Substance and Sexual Activity Alcohol use: Not Currently Drug use: Not Currently Sexual activity: Yes Partners: Male control/protection: Surgical Other Topics Concern Not on file Social History Narrative Merged History Encounter Social Drivers of Health Financial Resource Strain: Not on file Food Insecurity: No Food Insecurity (08/11/2024) Hunger Screening Food Insecurity - Worry: Never True Food Insecurity - Inability: Never True Transportation Needs: No Transportation Needs (08/11/2024) PRAPARE - Transportation Lack of Transportation (Medical): No Lack of Transportation (Non-Medical): No Physical Activity: Not on file Stress: Not on file Social Connections: Not on file Interpersonal Safety: Not At Risk (08/11/2024) Humiliation, Afraid, Rape, and Kick questionnaire Fear of Current or Ex-Partner: No Emotionally Abused: No Physically Abused: No Sexually Abused: No Housing Instability: Low Risk (08/11/2024) Housing Instability Housing Instability: No Current Medications: Current Outpatient Medications: albuterol (PROVENTIL HFA;VENTOLIN HFA) 90 mcg/actuation inhaler, Inhale 2 puffs every 6 (six) hours as needed for wheezing., Disp: , Rfl: amLODIPine-benazepril (LOTREL) 10-20 mg per capsule, Take 1 capsule by mouth in the morning., Disp: , Rfl: apixaban (ELIQUIS) 5 mg tablet, Take 1 tablet (5 mg total) by mouth in the morning and 1 tablet (5 mg total) before bedtime., Disp: 90 tablet, Rfl: 3 aspirin 81 mg, Take 1 tablet (81 mg total) by mouth in the morning., Disp: 90 tablet, Rfl: 3 budesonide-formoterol (SYMBICORT) 160-4.5 mcg/actuation inhaler, Inhale 2 puffs in the morning and 2 puffs before bedtime., Disp: , Rfl: methylPREDNISolone (MEDROL, ROYCE,) 4 mg tablet, Take 1 tablet (4 mg total) by mouth in the morning and 1 tablet (4 mg total) before bedtime. follow package directions., Disp: , Rfl: metoprolol tartrate (LOPRESSOR) 25 mg tablet, Take 2 tablets (50 mg total) by mouth., Disp: , Rfl: rosuvastatin (CRESTOR) 10 mg tablet, Take 1 tablet (10 mg total) by mouth in the morning., Disp: , Rfl: Allergies: Allergies Allergen Reactions Demerol [Meperidine] Shortness Of Breath and Swelling Demerol [Meperidine] Hives Last Neuro Imaging: MRi brain 07/2024 Objective: BP 118/70 Pulse 81 Wt 71.7 kg (158 lb) BMI 26.29 kg/m Physical Exam: Physical Exam: Mental Status: Orientation: Oriented. Level of consciousness: alert. Speech: Normal quality. Language: Normal. Cranial Nerves: CN II: Visual paul full to confrontation. CN III, IV, : CN III: EOM full. CN VII: Facial expression fully symmetric. Motor: Power: Pronator drift: None. Sensory: Light touch normal in upper and lower extremities. Gait/Coord/DTR: Coordination: Normal. NIH Stroke Scale 1a Level of consciousness: 0=alert; keenly responsive 1b. LOC questions: 0=Performs both tasks correctly 1c. LOC commands: 0=Performs both tasks correctly 2. Best Gaze: 0=normal 3. Visual: 0=No visual loss 4. Facial Palsy: 0=Normal symmetric movement 5a. Motor left arm: 0=No drift, limb holds 90 (or 45) degrees for full 10 seconds 5b. Motor right arm: 0=No drift, limb holds 90 (or 45) degrees for full 10 seconds 6a. motor left le=No drift, limb holds 90 (or 45) degrees for full 10 seconds 6b Motor right le=No drift, limb holds 90 (or 45) degrees for full 10 seconds 7. Limb Ataxia: 0=Absent 8. Sensory: 0=Normal; no sensory loss 9. Best Language: 0=No aphasia, normal 10. Dysarthria: 0=Normal 11. Extinction and Inattention: 0=No abnormality 12. Distal motor function: 0=Normal Total: 0 MRS: 0 Risk Factor Management: Hypertension target range 130-140/70-80 Lipid range - LDL < 100 and checked every 6 months, fasting Smoking cessation Assessment: Patient Active Problem List Diagnosis Abnormal uterine bleeding (AUB) Pelvic pain UTI (urinary tract infection) Encounter to establish care CVA (cerebral vascular accident) ([facility]) Patient is a 44-year-old female who sustained a left hemispheric ischemic stroke due to a left ICA thrombus in July of 2024 with past medical history of hypertension, hyperlipidemia, previous smoker. At this time will ask patient to continue aspirin and Eliquis and will also ask patient to complete event monitor for heart palpitations. If event monitor is negative, it is reasonable to switch patient to aspirin only. Will also recommend starting Wellbutrin instead of Zoloft as Zoloft can increase bleeding risk while on Eliquis. Will have the patient follow up if needed. Plan: Continue ASA and Eliquis. Continue cholesterol medication. Continue BP medication. Continue smoking cessation. Start Wellbutrin for mood stabilization. Complete event monitor to rule out Afib. Will call in 6 months, if doing well, no followup needed. Call for any questions/concerns. documented in this encounter [facility] 10-09-2024 Instructions Ismael Gill MD - 10/09/2024 1:00 PM EST Continue ASA and Eliquis. Continue cholesterol medication. Continue BP medication. Continue smoking cessation. Start Wellbutrin for mood stabilization. Complete event monitor to rule out Afib. Will call in 6 months, if doing well, no followup needed. Call for any questions/concerns. documented in this encounter [facility] 10-09-2024 Miscellaneous Notes Formattin g of this note might be different from the original. Disclaimer: This note is intended for educational purposes only. It does not constitute a patient visit and is not to be used or relied on for treatment, billing, or any other purposes. It has been created solely for to enable the student to practice documentation to achieve the expected level of competency in charting and receive feedback regarding same. This note is not a part of the legal medical record. documented in this encounter [facility] 10-09-2024 Progress note Formatting of t his note might be different from the original. Disclaimer: This note is intended for educational purposes only. It does not constitute a patient visit and is not to be used or relied on for treatment, billing, or any other purposes. It has been created solely for to enable the student to practice documentation to achieve the expected level of competency in charting and receive feedback regarding same. This note is not a part of the legal medical record. [facility] 09-11-2024 Miscellaneous Notes Formattin g of this note might be different from the original. ----- Message from Deb Nichole MD sent at 08/14/2024 12:33 PM EDT ----- Hi can we please schedule this patient in the [facility] in 6 weeks' time. I have scheduled for CTA head and neck for 5 weeks Looks like patient completed imaging today but wasn't supposed to be done until 5 weeks from now. Will need to likely re-order imaging again. Please review imaging and advise if repeat will need done or if this is okay. Patient will be requiring the CTA head and neck at the stated time because we want to evaluate the clot after anticoagulation has been given for a certain time. documented in this encounter [facility] 09-11-2024 Telephone encount er Note ----- Message from Deb Nichole MD sent at 08/14/2024 12:33 PM EDT ----- Hi can we please schedule this patient in the [facility] in 6 weeks' time. I have scheduled for CTA head and neck for 5 weeks [facility] 09-11-2024 Telephone encount er Note Looks like patient completed imaging today but wasn't supposed to be done until 5 weeks from now. Will need to likely re-order imaging again. [facility] 09-11-2024 Telephone encount er Note Please review imaging and advise if repeat will need done or if this is okay. [facility] 09-11-2024 Telephone encount er Note Patient will be requiring the CTA head and neck at the stated time because we want to evaluate the clot after anticoagulation has been given for a certain time. [facility] 07-23-2024 History and physical note Note Date/Time July 23, 2024 7:47am [facility] [address] [place] [address] Gastroenterology H&P Signed Patient: Ira Delarosa MR#: [id number] : 1980 Acct:[id number] Age/Sex: 44 / F Adm Date: 4 Loc: Room: Type: [facility] Attending Dr: Yue Ramey DO Copies to: Yue Ramey, DO [facility] Date of Service: 07/23/2024 HISTORY & PHYSICAL: Patient's history with special attention to the cardiovascular, pulmonary systems and the current problem was reviewed with the patient immediately prior to the procedure. Present medications and doses reviewed in the EMR. Allergies and pertinent laboratory tests were also reviewedat this time in the EMR. The physical examination, as below, was then performed. Indication, assessment and HPI: 44-year-old female who presents for EGD and colonoscopy for dysphagia and screening with a family history of colon cancer inher mother. No prior EGD or colonoscopy. Family history of GI malignancy? Mother with colon cancer PHYSICAL EXAMINATION General appearance: cooperative, NAD Skin: No jaundice, no rash or lesions Head: NCAT Eyes: Anicteric Neck: Supple Lungs: Normal respiratory effort, no use of accessory muscles Abdomen: Soft, nondistended Neuro: No focal deficits, Ox3. REVIEW OF SYSTEMS Constitutional: Denies malaise, fevers Cardiovascular: Denies chest pain, palpitations Respiratory: Denies shortness of breath, wheezing Gastrointestinal: As per HPI Genitourinary: Denies dysuria, polyuria Musculoskeletal: Denies joint swelling, joint stiffness Neurological: Denies confusion, numbness, tingling Endocrine: Denies fatigue Written informed consent obtained from the patient. Risks (including but not limited to perforation, infection, bloating, bleeding, need for emergent surgeryand loss of life), benefits and alternatives explained and questions answered. The patient verbalized understanding. Based on history patient is an appropriate candidate for the procedure. Yue Ramey DO Documented By: Yue Ramey DO 07/23/24 0746 Signed By: <Electronically signed by Yue Ramey DO> 07/23/24 0747 [facility] Work Phone: [phone]) 179-837108-26-2024 Procedure [facility]08-26-2024 Procedure [facility]02-08-2024 Evaluation note* Encounter Date Diagnosis Assessment Notes Treatment Notes Treatment Clinical Notes Dec, Irritation of left eye (ICD-10 - H57.89) No contact or other FB noted on exam in office today. Likely contact fell out already, and the eye is irritated from rubbing. Use saline or allergy eye drops as directed, wear glasses only for a few days, and f/u pcp or optho for any persistent, changing or worsening sx. Pt understood and agreed to tx plan. [employer] Other 05-08-2023 Evaluation note* Encounter Date Diagnosis Assessment Notes Treatment Notes Treatment Clinical Notes March, Sore throat (ICD-10 - J02.9) March, Allergic rhinitis, unspecified seasonality, unspecified trigger (ICD-10 - J30.9) Rapid strep is negative. No evidence of bacterial etiology. History and exam most consistent with allergic rhinitis. Will prescribe fluticasone, medrol dose pack, and cetirizine. Drink plenty of fluids and get plenty of rest. If symptoms worsen or do not improve in 5-7 days, return to urgent care if you can not get in to see your pcp. Take tylenol or ibuprofen for fever and or discomfort. [employer] Other 11-03-2021 NoteHNO ID: [id number] Author: Jeffrey Andrews OD Service: ? Author Type: BEZEL CUTTER Type: Progress Notes Filed: 09/30/2021 3:06 PM Note Text: ASSESSMENT/PLAN: 1. 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 Wears contact lenses - ICD9: V41.0, ICD10: Z97.3 Has not been able to tolerate CL's x 1 month Marginal infiltrate exacerbated by CL's Start Tobradex Left eye four times a day No Cl wear until quiet eye Return to clinic if any signs and/or symptoms escalation Plan 7-10 day cornea check I have confirmed and edited as necessary the relevant ophthalmic history, ROS, and the exam findings as obtained by others. I have seen and examined this patient. I also have reviewed and agree with the assessment and plan as stated above and agree with all of its relevant components. Jeffrey Andrews OD September 30, 2021 3:03 [facility]11-03-2021 Miscellaneous Notes* Addendum Note - Jeffrey Andrews OD - 09/30/2021 3:07 PM EDT Addended by: JEFFREY ANDREWS on: 09/30/2021 03:07 PM Modules accepted: [facility] [place] History of Present illness Narrative* Jeffrey Andrews OD - 09/30/2021 3:03 PM EDT ASSESSMENT/PLAN: 1. 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 Wears contact lenses - ICD9: V41.0, ICD10: Z97.3 Has not been able to tolerate CL's x 1 month Marginal infiltrate exacerbated by CL's Start Tobradex Left eye four times a day No Cl wear until quiet eye Return to clinic if any signs and/or symptoms escalation Plan 7-10 day cornea check I have confirmed and edited as necessary the relevant ophthalmic history, ROS, and the exam findings as obtained by others. I have seen and examined this patient. I also have reviewed and agree with the assessment and plan as stated above and agree with all of its relevant components. Jeffrey Andrews, RAMBO September 30, 2021 3:03 PM [facility]* Diagnosis Infiltrate of cornea- Primary Corneal edema, unspecified Wears contact lenses Problems with sight documented in this encounter [facility] noteNo assessment information availableMain [facility] Work Phone: Evaluation note* Diagnosis Cerebrovascular accident (CVA), unspecified mechanism ([facility] Primary Palpitations [facility] Cerebrovascular accident (CVA) due to occlusion of left carotid artery ([facility] Primary [facility] N[facility]ative - Reported* Type Description Date Surgical History D&C Surgical History cholecystectomy Hospitalization History see surgical [facility] [employer] Other InstructionsNot on filedocumented in this encounter [facility]ructionsNot on filedocumented in this encounter [facility] [employer] Broadcast Summary Purpose Family History No Family History Records Found Relationship Condition Age at Onset Recorded Date/T raina father Hypertension Unknown mother Heart disease Unknown Malignant neoplasm Unknown Advance Directives No Advanced Directives Records Found Advance Directive Response Recorded Date/ Time Advance Directives No April 10 2:13pm Date Activated Date Inactivated Comments 08/11/2024 2:15 AM 08/14/2024 5:13 PM Date Activated Date Inactivated Comments 08/11/2024 2:15 AM 08/14/2024 5:13 PM Reason for Referral Status Reason Specialty Diagnoses / Procedures Referre d By Contact Referred To Contact Closed Jeffrey Andrews, OD [address] [place] [address] Chief Complaint and Reason for Visit Chief Complaint R10.32 r93.5 Chief Complaint r93.5 See order Chief Complaint sent by Chief Complaint sent by CERVICAL DYSPHAGIA, SCREENING CERVICAL DYSPHAGIA, SCREENING Additional Source Comments INFORMATION SOURCE (unrecogn ized section and content) DATE CREATED AUTHOR 07/28/2018 [facility] DATE CREATED AUTHOR AUTHOR'S ORGANIZ ATION 06/22/2019 [facility] DATE CREATED AUTHOR AUTHOR'S ORGANIZ ATION 01/04/2022 [facility] DATE CREATED AUTHOR AUTHOR'S ORGANIZ ATION 10/01/2022 [facility] DATE CREATED AUTHOR AUTHOR'S ORGANIZ ATION 10/17/2023 [facility] EP[facility] DATE CREATED AUTHOR AUTHOR'S ORGANIZ ATION 08/02/2024 [facility] DATE CREATED AUTHOR AUTHOR'S ORGANIZ ATION 09/12/2024 [facility] DATE CREATED AUTHOR AUTHOR'S ORGANIZ ATION 10/11/2024 [facility] DATE CREATED AUTHOR AUTHOR'S ORGANIZ ATION 11/21/2024 [facility] Source Comments (unrecognize d section and content) In the event this informatio n is protected by the Federal Confidentiality of Alcohol and Drug Abuse Patient Records regulations: The Federal rules restrict any use of the information to criminally investigate or prosecute any alcohol or drug abuse patient.[facility] Reason for Visit (unrecogniz ed section and content) Reason Comments Contact Lens Problem Left Eye New Patient Care Teams (unrecognized sec tion and content) Team Status: Inactive Member Role Status Dates [facility] Dept Primary Care Provider Active Nesha Chappell APRN Attending Provider Active Team Status: Active Member Role Status Dates [facility] Active Team Status: Inactive Member Role Status Dates [facility] Primary Care Provider Active Vineet Sherman DO Attending Provider Active Team Status: Inactive Member Role Status Dates [facility] Primary Care Provider Active Start: June 13, 2024 End: June 13, 2024 Parvez Joseph DO Emergency Provider Active St art: June 13, 2024 End: June 13, 2024 Team Status: Inactive Member Role Status Dates [facility] Primary Care Provider Active Start: July 23, 2024 End: July 23, 2024 Yue Ramey , DO Attending Provider Active St art: July 23, 2024 End: July 23, 2024 Vineet Sherman DO Referring Provider Active Sta rt: July 23, 2024 End: July 23, 2024 Team Status: Active Member Role Status Dates [facility] Primary Care Provider Active Start: July 23, 2024 Yue Ramey , DO Attending Provider, Other Provider Active Start: July 23, 2024 Vineet Sherman DO Referring Provider Active Sta rt: July 23, 2024 Metrology Technician Relationship Specialty Start Date End Date Vineet Sherman DO [address] [id number] PCP - General Family Medicine 08/11/24 Metrology Technician Relationship Specialty Start Date End Date Vineet Sherman DO [address] [place] [address] PCP - General Family Medicine 08/11/24 Metrology Technician Relationship Specialty Start Date End Date Vineet Sherman DO [address] [id number] PCP - General Family Medicine 08/11/24 Metrology Technician Relationship Specialty Start Date End Date Vineet Sherman DO [address] [id number] PCP - General Family Medicine 08/11/24 Goals (unrecognized section and content) Goals may be documented in a n alternate sectionGoals may be documented in an alternate sectionNo InformationNo InformationGoals may be documented in an alternate sectionNot on filedocumented as of this encounterNot on filedocumented as of this encounterNot on filedocumented as of this encounter FOR RECORDS PERTAINING TO PATIENTS WHO ARE OR HAVE BEEN ENROLLED IN A CHEMICAL DEPENDENCY/SUBSTANCEABUSE PROGRAM, SOME INFORMATION MAY BE OMITTED. This clinical summary was aggregated from multiple sources. Caution should be exercised in using it in the provision of clinical care. This summary normalizes information from multiple sources, and as a consequence, information in this document may materially change the coding, format and clinical context of patient data. In addition, data may be omitted in some cases. CLINICAL DECISIONS SHOULD BE BASED ON THE PRIMARY CLINICAL RECORDS. [facility] [employer] [facility]. provides no warranty or guarantee of the accuracy or completeness of information in this document.
--- NOTE | 2024-11-25 20:07 | XR_ITS ---
[address] [address] Patient Name: GARIMA CORNEJO MRN: [id number] date: 1980 Sex: F Assigned Patient Location: ER Current Patient Location: ED.MAIN Accession/Order Number: [id number] Exam Date: 11/25/2024 20:17 Report Date: 11/25/2024 21:13 At the request of: SYDNEY PEPPER Procedure: XR chest 1V Exam: Radiographs: XR chest 1V Reason for exam: cough Comparison: Chest x-ray dated 08/10/2024 XR/XR chest 1V IMPRESSION: Nodular opacity projected over the right upper lung is indeterminate. Recommend follow-up evaluation with chest CT. Remainder the chest is unremarkable. Electronically authenticated by: AYSHA ADAN Date: 11/25/2024 21:13
--- NOTE | 2024-11-25 20:07 | CT_ITS ---
The [address] [address] Patient Name: GARIMA CORNEJO MRN: [id number] date: 1980 Sex: F Assigned Patient Location: ER Current Patient Location: ER Accession/Order Number: [id number] Exam Date: 11/25/2024 20:17 Report Date: 11/25/2024 20:33 At the request of: SYDNEY PEPPER Procedure: CT stroke head/brain wo con EXAM: CT scan of the head without contrast. Dose reduction technique used: Automated exposure control and/or adjustment of the mA and/or kV according to patient size and/or use of iterative reconstruction technique. REASON FOR EXAM: headache COMPARISON: CT scan dated 08/10/2024 FINDINGS: No intracranial hemorrhage, mass effect, midline shift, fractures or evidence of acute ischemic infarct. No hydrocephalus. Paranasal sinuses and mastoid air cells are clear. Remainder unremarkable. CT/CT stroke head/brain wo con IMPRESSION: No acute intracranial abnormalities. Electronically authenticated by: AYSHA ADAN Date: 11/25/2024 20:33
[2024-11-25 20:46] LABS: Basophils Percent Auto 0.5 % (0.2-2.0); Eosinophils Percent Auto 0.5 % (0.9-7.0); Hematocrit 40.7 % (36.0-48.0); Lymphocytes Absolute Auto 1.7 10^3/uL (1.2-3.8); Lymphocytes Percent Auto 47.7 % (20.5-60.0); Mean Corpuscular HGB Conc 34.4 g/dL (29.9-35.2); Mean Corpuscular Hemoglobin 33.1 pg (26.7-34.0); Mean Corpuscular Volume 96.2 fL (81.0-99.0); Mean Platelet Volume 8.7 fL (9.5-13.5); Monocytes Absolute Auto 0.3 10^3/uL (0.3-0.8); Monocytes Percent Auto 7.9 % (1.7-12.0); Neutrophils Absolute Auto 1.6 10^3/uL (1.4-6.5); Neutrophils Percent Auto 43.4 % (43.0-75.0); Platelet Count 229 10^3/uL (150-450); Red Blood Count 4.23 10^6/uL (4.20-5.40); Red Cell Distribution Width 11.9 % (11.0-15.0); White Blood Count 3.7 10^3/uL (4.0-11.0)
--- NOTE | 2024-11-25 20:50 | PC.NURSE ---
this patient complains of headache onset 11/22/2024, and she had a stroke this year and i was worried. plus Tuesday my a different with my hand writing and i just want to be check out since of my past stroke. this patient said her right side headache is better now
[2024-11-25 21:00] LABS: Influenza Virus A Antigen Negative; Influenza Virus B Antigen Negative; Internal Control Within Normal Limits; SARS-CoV-2 Ag POSITIVE (NEGATIVE)
[2024-11-25 21:04] LABS: Alanine Aminotransferase 29 U/L (14-59); Albumin Level 3.6 g/dL (3.4-5.0); Alkaline Phosphatase 60 U/L (46-116); Anion Gap 11.7; Aspartate Amino Transferase 18 U/L (15-37); BUN Creatinine Ratio 10.8; Bilirubin Total 0.2 mg/dL (0.2-1.0); Calcium 8.7 mg/dL (8.5-10.1); Carbon Dioxide 25.2 mmol/L (21.0-32.0); Chloride 105 mmol/L (98-107); Estimated GFR (African America 59 (>=60 mL/min/1.73m^2); Estimated GFR (Non-African Ame 49 (>=60 mL/min/1.73m^2); Globulin 3.5 g/dL; Glucose 114 mg/dL (74-106); INR 0.93; Partial Thromboplastin Time 29.3 sec (22.3-36.2); Potassium 3.9 mmol/L (3.5-5.1); Prothrombin Time 9.9 sec (9.0-11.6); Sodium 138 mmol/L (136-145); Total Protein 7.1 g/dL (6.4-8.2)
[2024-11-25 21:10] LABS: Troponin I High Sensitivity 5.9 pg/mL (4.0-51.3)
--- NOTE | 2024-11-25 21:15 | ED_ITS ---
HPI HPI - General Adult General Chief complaint: Altered Mental Status Stated complaint: dizzy past stroke Time Seen by Provider: 11/25/24 19:59 Source: patient Mode of arrival: Wheelchair History of Present Illness HPI narrative: 44-year-old female presents here with a chief complaint of dizziness. She states she was concerned because she had a history of a stroke in July. She is alert and oriented no acute distress denies any headache blurry vision or double vision. She states she occasionally has some tingling in her left hand and fingers. She states she feels like she has a sinus infection and pressure. She wanted to be evaluated just to be sure. Related Data Home Medications ?Medication ?Instructions ?Recorded ?Confirmed amlodipine 10 mg-benazepril 20 mg 1 cap PO DAILY 08/10/24 11/25/24 capsule apixaban 5 mg tablet (Eliquis) 5 mg PO BID 11/25/24 11/25/24 budesonide-formoterol HFA 160 1 inh inhalation DAILY 11/25/24 11/25/24 mcg-4.5 mcg/actuation aerosol inhaler (Symbicort) bupropion HCl 150 mg 24 hr tablet, 150 mg PO DAILY 11/25/24 11/25/24 extended release Allergies Allergy/AdvReac Type Severity Reaction Status Date / Time meperidine (From Demerol) AdvReac Mild Hives Verified 08/10/24 19:15 Opioid HPI Opioid Management Most Recent Opioid Data: Last Pain Scale 8 11/25/24 20:46 11/25/24 Review of Systems ROS Status of ROS 10 or more systems reviewed and unremark able except as noted in history and below PFSH PFSH Family History (Updated 06/13/24 @ 18:34 by CARLOS Ma) Other Family history of cancer Family history of hypertension Social History (Updated 06/13/24 @ 18:34 by CARLOS Ma) Smoking status: Current every day smoker Little interest or pleasure in doing things: not at all Feeling down, depressed, or hopeless: not at all Exam Narrative Exam Narrative: Nurses note and vital signs reviewed and patient is not hypoxic. General: The patient appears well and in no apparent distress. Patient is resting comfortably on cart. Skin: Warm, dry, no pallor noted. There is no rash noted. Head: Normocephalic, atraumatic Eye: Normal conjunctiva, no drainage, EOMI. PERRL Ears, Nose, Mouth, and Throat: oral mucosa is moist. Nares patent. Mouth without vesicles. Ear canals patent. Tm's without Erythema Cardiovascular: Regular Rate and Rhythm Respiratory: Patient is in no distress, no accessory muscle use, lungs are clear to auscultation, no wheezing, rales or rhonchi Back: non-tender, no CVA tenderness bilaterally to percussion. GI: Normal bowel sounds, no tenderness to palpation, no masses appreciated. No rebound, guarding, or rigidity noted. Musculoskeletal: The patient has no evidence of calf tenderness, no pitting edema, symmetrical pulses noted bilaterally Neurological: A&O x4, normal speech Psychiatric: Cooperative Constitutional Vital Signs, click to edit/add: Last Vital Signs Temp 98.1 F 11/25/24 19:57 Pulse 80 11/25/24 19:57 Resp 18 11/25/24 19:57 BP 115/73 11/25/24 19:57 Pulse Ox 100 11/25/24 19:57 O2 Del Method Room Air 11/25/24 19:57 Course Vital Signs Vital signs: Vital Signs Temperature 98.1 F 11/25/24 19:57 Pulse Rate 80 11/25/24 19:57 Respiratory Rate 18 11/25/24 19:57 Blood Pressure 115/73 11/25/24 19:57 Pulse Oximetry 100 11/25/24 19:57 Oxygen Delivery Method Room Air 11/25/24 19:57 Temperature 98.1 F 11/25/24 19:57 Pulse Rate 80 11/25/24 19:57 Respiratory Rate 18 11/25/24 19:57 Blood Pressure 115/73 11/25/24 19:57 Pulse Oximetry 100 11/25/24 19:57 Oxygen Delivery Method Room Air 11/25/24 19:57 Medical Decision Making MDM Narrative Medical decision making narrative: Chief complaint of sinus pressure pain. After speaking to her multiple times she states that her daughter had COVID last week. COVID was obtained and is positive. Initial head CT was performed as she had had a recent stroke in July of this year. She had no focal neurological deficits neurological exam was totally benign. Patient will be discharged home follow-up primary care physician. Differential Diagnosis Differential Diagnosis: URI, influenza, COVID Medical Records Medical records reviewed: Yes I reviewed the patient's medical records Lab Data Lab results reviewed: Yes I reviewed the patient's lab results Labs: Lab Results 11/25/24 11/25/24 Range/Units 20:37 20:40 WBC 3.7 L (4.0-11.0) 10^3/uL RBC 4.23 (4.20-5.40) 10^6/uL Hgb 14.0 (12.0-16.0) g/dL Hct 40.7 (36.0-48.0) % MCV 96.2 (81.0-99.0) fL MCH 33.1 (26.7-34.0) pg MCHC 34.4 (29.9-35.2) g/dL RDW 11.9 (11.0-15.0) % Plt Count 229 (150-450) 10^3/uL MPV 8.7 L (9.5-13.5) fL Neut % (Auto) 43.4 (43.0-75.0) % Lymph % (Auto) 47.7 (20.5-60.0) % [place] % (Auto) 7.9 (1.7-12.0) % Eos % (Auto) 0.5 L (0.9-7.0) % Baso % (Auto) 0.5 (0.2-2.0) % Neut # (Auto) 1.6 (1.4-6.5) 10^3/uL Lymph # (Auto) 1.7 (1.2-3.8) 10^3/uL [place] # (Auto) 0.3 (0.3-0.8) 10^3/uL Eos # (Auto) 0.0 (0.0-0.7) 10^3/uL Baso # (Auto) 0.0 (0.0-0.1) 10^3/uL Abs Immat Gran (auto) 0.00 (0.00-0.03) 10^3/uL Imm/Tot Granulo (auto) 0.0 (0.0-0.5) % PT 9.9 (9.0-11.6) sec INR 0.93 APTT 29.3 (22.3-36.2) sec Sodium 138 (136-145) mmol/L Potassium 3.9 (3.5-5.1) mmol/L Chloride 105 (98-107) mmol/L Carbon Dioxide 25.2 (21.0-32.0) mmol/L Anion Gap 11.7 BUN 13.0 (7.0-18.0) mg/dL Creatinine 1.20 H (0.55-1.02) mg/dL Est GFR ( Amer) 59 L (>=60 mL/min/1.73m^2) Est GFR (Non-Af Amer) 49 L (>=60 mL/min/1.73m^2) BUN/Creatinine Ratio 10.8 Glucose 114 H (74-106) mg/dL Calcium 8.7 (8.5-10.1) mg/dL Total Bilirubin 0.2 (0.2-1.0) mg/dL AST 18 (15-37) U/L ALT 29 (14-59) U/L Alkaline Phosphatase 60 (46-116) U/L Total Protein 7.1 (6.4-8.2) g/dL Albumin 3.6 (3.4-5.0) g/dL Globulin 3.5 g/dL Albumin/Globulin Ratio 1.0 Influenza Type A Ag Negative Influenza Type B Ag Negative SARS-CoV-2 Ag (CV2AG) Positive A (NEGATIVE) Imaging Data CT scan - head: Radiologist's impression: ITS Impressions Brain CT 11/25/24 20:07 IMPRESSION: No acute intracranial abnormalities. Electronically authenticated by: AYSHA ADAN Date: 11/25/2024 20:33 Chest X-Ray 11/25/24 20:07 IMPRESSION: Nodular opacity projected over the right upper lung is indeterminate. Recommend follow-up evaluation with chest CT. Remainder the chest is unremarkable. Electronically authenticated by: AYSHA ADAN Date: 11/25/2024 21:13 Discharge Plan Discharge Chief Complaint: Altered Mental Status Clinical Impression: COVID Patient Disposition: Home, Self-Care Time of Disposition Decision: 21:30 Condition: Good Prescriptions / Home Meds: No Action amlodipine-benazepril 10-20 mg capsule 1 cap PO DAILY Eliquis 5 mg tablet 5 mg PO BID budesonide-formoterol [Symbicort] 160-4.5 mcg/actuation HFA aerosol inhaler 1 inh INHALATION DAILY bupropion HCl 150 mg tablet extended release 24 hr 150 mg PO DAILY Print Language: Vietnamese Instructions: COVID-19 (Coronavirus Disease 2019) (ED) Referrals: [facility] [Primary Care Provider] - 1 week
--- NOTE | 2024-11-25 21:30 | PC.NURSE ---
i gave this patient verbal and paper discharge order and she voices yes to understanding these. at time of discharge this patient voices no concerns and shows no signs of distress
== END 2024-11-25 21:31 | disposition home or self-care (01) ==
PROVIDERS: Physician Assistant; Emergency Provider Emergency Medicine
DX: U07.1 COVID-19 (principal); Z86.73 Personal history of transient ischemic attack (TIA), and cerebral infarction without residual deficits; F17.200 Nicotine dependence, unspecified, uncomplicated
CPT/HCPCS: 36415; 70450; 71045; 80053; 84484; 85025; 85610; 85730; 87804; 87811; 99285